=== PATIENT | male | born 1940 | race Caucasian/White ===

== ENCOUNTER 2023-12-07 10:50 | Inpatient (IN) ==
[2023-12-07] MEDS ORDERED: Heparin IV Adult Wt-Based Low-Dose w/ INITIAL Bolus Protocol STA (11:06)
--- NOTE | 2023-12-07 11:10 | Emergency Department Note ---
Impression & Plan STEMI (ST elevation myocardial infarction), Chest pain ED Provider Note NAME: ALLEN GILBERT AGE: 83 SEX: M : 1940 ARRIVES VIA: Walk-In INFORMANT: Patient, ED PROVIDER(S): Miguel Conley MD CHIEF COMPLAINT: Chest pain MEDICAL DECISION MAKING: Patient presented due to concern for chest pain and associated STEMI seen on EKG. The patient was ordered the rest of full course of aspirin and Brilinta load. Heparin bolus and drip were ordered. I did [place] the EKG to the on-call group activities aide Dr. Galdamez. It is per the on-call hospitalist Dr. Webber and the patient was admitted to the medicine service. Blood work shows a white count of 10 with a normal hemoglobin and platelet count. The patient's kidney function with creatinine 1.49. Initial troponin of 42. Critical Care: I have personally spent 35 minutes of critical care time in direct management of this patient. This includes bedside care, interpretation of diagnostic studies, and testing, discussion with consultants, patient, and family members, and other require inpatient management activities. This 35 minutes is in excess of all separately billable procedures. Discussion w/ other healthcare providers: Dr. Webber inpatient medicine service Dr. Galdamez corporate communications specialist Prior /Outside records reviewed: None Differential diagnosis: Cardiac ischemia, aortic dissection, pulmonary embolism, pneumothorax, pneumonia, pericarditis, myocarditis, GERD, cholecystitis, pancreatitis, musculoskeletal, as well as other pathologies were considered. Diagnostics, as interpreted by me: ECG: Sinus with a rate in the 60s, normal OK and QRS, left axis deviation. ST elevations in the anterior lateral leads along with trace elevations in the high lateral leads. No priors for comparison. Cardiac monitoring: An order was placed for continuous cardiac monitoring. The monitor shows a rate of 65 with sinus rhythm. Patient was placed on pulse oximetry Medical decision rules: Heart score Imaging studies: I informally interpreted the patient's Chest x-ray does not show obvious pneumonia or pneumothorax with formal report to follow. HPI: Patient presents due to concern for chest pain that began about an hour ago while driving. The patient states that it is still present. Patient did take 2 baby aspirin at home. The patient denies any prior history of heart or lung disease and no upper respiratory or lower respiratory symptoms. Patient denies any leg swelling or calf pain. Patient does complain of nausea but no vomiting. He describes it as a pressure that is left-sided diffuse across the chest. He did not think it necessarily got any worse when walking into the department today. Patient states that it is currently present. PAST MEDICAL HISTORY: See Below PAST SURGICAL HISTORY: See Below SOCIAL HISTORY: See Below HOME MEDICATIONS: See Below ALLERGIES: See Below VITALS: See Below PHYSICAL EXAMINATION: GENERAL: NAD, non-toxic. EYE EXAM: Normal conjunctiva. PERRL, no anisocoria and EOM's grossly intact w/o pain. OROPHARYNX: Moist mucus membranes, grossly normal dentition. NECK: Trachea midline, no stridor. LUNGS: Clear to auscultation. Normal chest wall mechanics. HEART: NSR, no MRG. ABDOMEN: Abdomen soft, non-tender, no masses, no rebound or guarding. BACK: No CVA TTP. SKIN: No rashes and no bruising. UPPER EXTREMITIES: Upper extremities are grossly normal. LOWER EXTREMITIES: Grossly normal, no edema. NEURO EXAM: A&O x3, cranial nerves II-XII grossly intact, normal speech, moves all 4 extremities. Past Med/Surg History Problem List (Updated 12/07/23 @ 19:14 by Miguel Conley MD) Chest pain (Acute) Pure hypertriglyceridemia Hypertension Chronic kidney disease, stage 3b Chronic tophaceous gout STEMI (ST elevation myocardial infarction) (Acute) Medical History Prostate cancer Previously followed with [facility] Rad/Onc and Urology, completed treatment in June 2020 Social History Smoking Status: Former smoker Second Hand Exposure: No; Do You Dip or Chew Tobacco: No; Tobacco Cessation Education Requested by Patient: No Hx Alcohol Use: No Hx Substance Use: No Preferred Language: Cantonese German Communication Ability: Effective Motor Setter Required: No Beliefs That Will Affect Care: None Current Living Situation: Spouse Other Information That Helps Us Care for You: No Feels Safe at Home: Yes Safety Concerns: Feels Safe At This Time Assistive Devices: None Allergies Allergies Allergy/AdvReac Type Severity Reaction Status Date / Time No Known Allergies Allergy Unverified 12/07/23 13:56 Home Meds Home Medications Medication Instructions Recorded Confirmed allopurinol 300 mg tablet 300 mg PO BID 12/07/23 12/07/23 finasteride 5 mg tablet 5 mg PO DAILY 12/07/23 12/07/23 glucosamine sulfate 500 mg tablet 500 mg PO BID 12/07/23 12/07/23 prednisone 2.5 mg tablet 2.5 mg PO DAILY 12/07/23 12/07/23 Results & Data (ED) Vital Signs Vital Signs - 24 hr 12/07/23 10:54 12/07/23 11:14 Temperature 36.5 C Temperature Source Oral Pulse Rate 56 L 63 Respiratory Rate 14 Blood Pressure 163/99 H Blood Pressure Mean 120 Pulse Oximetry 99 Oxygen Delivery Method Room Air Sepsis New/Unexplained Change in Mental Status No Sepsis Action Taken by Nursing No Action Required Home Medications Current Medication List: was personally reviewed by me Laboratory Data Attestation: I reviewed the patient's lab results. 12/07/23 11:08 12/07/23 11:08 Lab Results 12/07/23 Range/Units 11:08 WBC 10.81 H (4.8-10.8) K/ul RBC 4.47 L (4.70-6.10) M/uL Hgb 14.4 (14.0-18.0) g/dl Hct 45.4 (42.0-52.0) % MCV 101.6 H (80.0-100.0) fL MCH 32.2 (25.0-34.0) pg MCHC 31.7 L (32.0-36.0) g/dL RDW Std Deviation 51.8 H (36.4-46.3) fL RDW Coeff of Rupali 13.8 (11.5-14.5) % Plt Count 193 (130-400) K/uL MPV 11.9 (9.4-12.4) fL Immature Gran % (Auto) 0.6 % Neut % (Auto) 82.4 % Lymph % (Auto) 8.2 % Jay % (Auto) 7.5 % Eos % (Auto) 0.9 % Baso % (Auto) 0.4 % Neut # (Auto) 8.90 H (1.40-6.50) K/uL Lymph # (Auto) 0.89 L (1.20-3.40) K/uL Jay # (Auto) 0.81 H (0.11-0.59) K/uL Eos # (Auto) 0.10 (0.00-0.50) K/uL Baso # (Auto) 0.04 (0.00-0.20) K/uL Immature Gran # (Auto) 0.07 (0.01-0.20) K/uL PT 11.8 (9.0-12.0) Seconds INR 1.1 (0.9-1.1) APTT 24 (21-31) Seconds PTT Ratio 0.9 Sodium 141 (136-145) mmol/L Potassium 3.8 (3.5-5.1) mmol/L Chloride 106 (98-107) mmol/L Carbon Dioxide 27 (21-32) mmol/L Anion Gap 8 (3-11) BUN 22 (6-23) mg/dl Creatinine 1.49 H (0.6-1.4) mg/dl Est Cr Clr Drug Dosing Not Reportable eGFR 46.28 BUN/Creatinine Ratio 14.8 (10-20) Glucose 122 H (70-99(Fasting)) mg/dl Calcium 9.7 (8.6-10.3) mg/dl Magnesium 2.0 (1.7-2.4) mg/dl Total Bilirubin 0.5 (0.2-1.0) mg/dl AST 20 (13-39) U/L ALT 22 (7-52) U/L Alkaline Phosphatase 83 (34-104) U/L Total Creatine Kinase 66 (30-223) U/L Troponin I High Sens 42.2 H (0-20) pg/ml B-Natriuretic Peptide 68 (0-100) pg/ml Total Protein 7.4 (6.0-8.3) gm/dl Albumin 4.6 (3.4-5.0) gm/dl Globulin 2.8 (2.5-4.0) gm/dl Albumin/Globulin Ratio 1.6 (0.9-2) Lipase 23 (11-82) U/L TSH 4.245 (0.300-4.500) uIu/ml Administered Medications Miscellaneous (Icu Protocol For Hyperglycemia) 1 each N/A ACHS PAULINE Stop: 12/09/23 16:29 Last Admin: 12/07/23 18:15 Dose: Not Given Documented By: KJS Nitroglycerin (Nitroglycerin Sl 0.4 Mg/Tab Tab) 0.4 mg SL Q5M PRN PRN Reason: Chest Pain Stop: 01/06/24 11:05 Last Admin: 12/07/23 11:13 Dose: 0.4 mg Documented By: TREVON Discontinued Medications Adenosine (Adenosine Iv Soln 3 Mg/Ml 2 Ml Vial) Confirm Administered Dose 6 mg IV .STK-MED ONE Stop: 12/07/23 12:12 Last Admin: 12/07/23 12:17 Dose: 1 mg Documented By: CHRISTAL Aspirin (Aspirin Chew 324 Mg) 162 mg PO NOW STA Stop: 12/07/23 11:07 Last Admin: 12/07/23 13:51 Dose: Not Given Documented By: NITA Aspirin (Aspirin 81 Mg Chew) Confirm Administered Dose 162 mg .ROUTE .STK-MED ONE Stop: 12/07/23 11:09 Last Admin: 12/07/23 11:11 Dose: 162 mg Documented By: TREVON Fentanyl Citrate (Fentanyl Citrate Pf 100 Mcg/2 Ml Vial) Confirm Administered Dose 100 mcg .ROUTE .ST-MED ONE Stop: 12/07/23 11:10 Last Increment: 12/07/23 12:47 Dose: 75 mcg Documented By: RALEIGH Heparin Sodium (Porcine) (Heparin (Porcine) 1000 Unit/Ml 10 Ml (Window Decorator Use Only)) Confirm Administered Dose 10,000 units .ROUTE .STK-MED ONE Stop: 12/07/23 11:10 Last Admin: 12/07/23 12:36 Dose: 12,000 units Documented By: RALEIGH Heparin Sodium (Porcine) (Heparin Sod (Porcine) 1000 Unit/Ml) Confirm Administered Dose 1,000 units .ROUTE .STK-MED ONE Stop: 12/07/23 11:14 Last Admin: 12/07/23 13:51 Dose: Not Given Documented By: NITA Heparin Sodium (Porcine) (Heparin (Porcine) 1000 Unit/Ml 10 Ml (Window Decorator Use Only)) Confirm Administered Dose 10,000 units .ROUTE .STK-MED ONE Stop: 12/07/23 11:52 Last Admin: 12/07/23 11:57 Dose: Not Given Documented By: RALEIGH Heparin Sodium/Sodium Chloride (Heparin In Nss Infusion 1000 Unit/500 Ml (2 U/Ml) Bag) Confirm Administered Dose 3,000 units IV .STK-MED ONE Stop: 12/07/23 11:11 Last Admin: 12/07/23 11:32 Dose: 3,000 units Documented By: CHRISTAL Iodixanol (Iodixanol (Visipaque) 320 Mg/Ml 100ml) Confirm Administered Dose 1 ml IV .[facility] ONE Stop: 12/07/23 11:11 Last Admin: 12/07/23 12:36 Dose: 160 ml Documented By: CHRISTAL Ioversol (Optiray 350) Confirm Administered Dose 1 ml .ROUTE .[facility] ONE Stop: 12/07/23 11:11 Last Admin: 12/07/23 11:33 Dose: Not Given Documented By: CHRISTAL Lidocaine HCl (Lidocaine 1% Local 20 Ml Vial) Confirm Administered Dose 60 ml .ROUTE .[facility] ONE Stop: 12/07/23 11:12 Last Admin: 12/07/23 11:33 Dose: 60 ml Documented By: CHRISTAL Midazolam HCl (Midazolam Hcl 1 Mg/Ml 2ml Vial) Confirm Administered Dose 2 mg .[address]TE .[facility] ONE Stop: 12/07/23 11:10 Last Admin: 12/07/23 12:37 Dose: 2 mg Documented By: RALEIGH Miscellaneous (Patient's Height &/Or Weight Needed) 1 each N/A ONE STA Stop: 12/07/23 13:32 Last Admin: 12/07/23 13:52 Dose: 1 each Documented By: NITA Mismigdaliaaneous Information (Patient's Allergy Info Needs Entered) 1 each N/A ONE STA Stop: 12/07/23 13:32 Last Admin: 12/07/23 13:52 Dose: 1 each Documented By: NITA Nicardipine HCl (Nicardipine Hcl Inj 2.5 Mg/Ml 10 Ml Amp) Confirm Administered Dose 25 mg .ROUTE .[facility] ONE Stop: 12/07/23 11:10 Last Admin: 12/07/23 11:58 Dose: 25 mg Documented By: CHRISTAL Nitroglycerin/Dextrose (Nitroglycerin/D5w 100mcg/Ml 20ml Syr) Confirm Administered Dose 2,000 mcg .ROUTE .[facility] ONE Stop: 12/07/23 11:11 Last Admin: 12/07/23 11:58 Dose: 2,000 mcg Documented By: CHRISTAL Ondansetron HCl (Ondansetron Inj 2 Mg/Ml 2 Ml Vial) Confirm Administered Dose 4 mg .ROUTE .STK-MED ONE Stop: 12/07/23 11:49 Last Admin: 12/07/23 11:58 Dose: 4 mg Documented By: RALEIGH Ticagrelor (Ticagrelor 90 Mg Tab) 180 mg PO ONE ONE Stop: 12/07/23 11:07 Last Admin: 12/07/23 11:11 Dose: 180 mg Documented By: TREVON Discharge Plan Visit Data Chief Complaint: Chest Pain Stated Complaint: CHEST PAIN/VERY TIRED/COLD SWEAT ED Provider: Miguel Conley Discharge Problem: STEMI (ST elevation myocardial infarction), Chest pain Patient Disposition: Admitted As Inpatient Discharge Instructions Interventions: ED Discharge Assessment Last Done: 12/07/23 11:26 Discharge Problem: STEMI (ST elevation myocardial infarction) Qualifiers: Involved coronary artery: LAD coronary artery Qualified Code(s): I21.02 - ST elevation (STEMI) myocardial infarction involving left anterior descending coronary artery Chest pain Qualifiers: Chest pain type: chest pain due to myocardial ischemia Ischemic chest pain type: unstable angina pectoris Qualified Code(s): I20.0 - Unstable angina
[2023-12-07] MEDS: ASPIRIN 81 MG CHEW ONE (11:11)
[2023-12-07] MEDS: TICAGRELOR 90 MG TAB PO ONE (11:11)
[2023-12-07] MEDS: NITROGLYCERIN SL 0.4 MG/TAB TAB SL PRN (11:13)
--- NOTE | 2023-12-07 11:21 | Pre Anesthesia Assessment ---
Date of Service December 07, 2023 Pre Sedation Assessment Vital Signs Temp Pulse Resp BP Pulse Ox O2 Del Method 12/07/23 11:14 63 12/07/23 10:54 97.7 F 56 L 14 163/99 H 99 Room Air Cardiovascular + regular rate Respiratory + respiratory effort normal Pre-Sedation Airway Assessment Smoking Status: Former smoker Hx Sleep Apnea: No Hx Difficult Intubation: No Short, Thick Neck: No Thyromental Distance: > or= 3.5 Finger Breadths Oral Cavity: + Dental Abnormalities Mallampati Class: III ASA: ASA4 Procedure Planning Contraindications for Sedation: none Current Medications Reviewed: Yes Notes The planned sedation has been discussed with the patient. Informed Consent was obtained. I have identified the patient, determined the appropriateness of sedation and have assessed the patient immediately prior to the procedure. All medicine(s) and interventions are by my order.
--- NOTE | 2023-12-07 11:24 | Cardiology Consultation ---
Date of Consultation December 07, 2023 Assessment & Plan (1) STEMI (ST elevation myocardial infarction): Presentation consistent with anterior STEMI and recommend proceeding with emergent cardiac catheterization and likely primary PCI. No apparent contraindications to procedure. Discussed risks, benefits, alternatives of procedure with patient and they are willing to proceed. Given aspirin and ticagrelor 180 mg in the ED. Further recommendations pending findings of coronary angiography. History of Present Illness History of Present Illness Mr. Pearce is an 83-year-old man here with acute chest pain and ECG concerning for acute OH. Patient seen emergently in the ED after heart alert activated on arrival. No prior cardiac history. Past medical history remarkable for chronic kidney disease thought secondary to heavy NSAID use in the setting of gout. Chest pain began approximately 1 hour prior to arrival while driving home from a muslim meeting. Describes substernal pain with associated nausea.. Denies similar symptoms in the past. Hypertensive to 160s upon arrival. Ongoing mild chest pain, 10. ECG showed sinus rhythm with anterior ST elevations. Family history: No premature CAD Social history: Non-smoker. 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 , here today with his Elsa. Home Medications Medication Instructions Recorded Confirmed Type allopurinol 300 mg tablet 300 mg PO BID 12/07/23 12/07/23 History glucosamine sulfate 500 mg tablet 500 mg PO BID 12/07/23 12/07/23 History prednisone 2.5 mg tablet 2.5 mg PO DAILY 12/07/23 12/07/23 History tamsulosin 0.4 mg capsule (Flomax) 0.4 mg PO DAILY 12/07/23 12/07/23 History Patient History Medical History (Updated 12/07/23 @ 12:35 by Sangeeta Kinsey DO) Prostate cancer Previously followed with [facility] Rad/Onc and Urology, completed treatment in June 2020 Social History Smoking Status: Former smoker Preferred Language: Azeri Feels Safe at Home: Yes Review of Systems Review of Systems: Not completed in the setting of emergent situation Physical Exam Physical Exam: General: Uncomfortable HEENT: Sclerae anicteric Lungs: Clear anteriorly Cardiac: Regular rate and rhythm, no murmurs. Vascular: 2+ radial Abdomen: Soft, nontender Extremities: Well perfused, no peripheral edema Neuro: Nonfocal Psych: Alert orient x3, normal affect and mood Results & Data Vital Signs (Past 12 Hours) Vital Signs Temp Pulse Resp BP Pulse Ox O2 Del Method 12/07/23 11:14 63 12/07/23 10:54 97.7 F 56 L 14 163/99 H 99 Room Air PG Care Time/CCT Total # of Minutes Spent Total Time Spent with Patient: Total time spent is greater than 50% in coordination of care (as documented) at patient's floor/unit and/or counseling patient: Coding Level of Care Code 23977 ER DEPT VISIT MOD LVL 4 Diagnoses STEMI (ST elevation myocardial infarction) I21.3
[2023-12-07] MEDS: OPTIRAY 350 ONE (11:33)
[2023-12-07] MEDS: LIDOCAINE 1% LOCAL 20 ML VIAL ONE (11:33)
[2023-12-07] MEDS: HEPARIN (PORCINE) 1000 UNIT/ML 10 ML (CATH LAB USE ONLY) ONE ×2 (11:57→12:36)
[2023-12-07] MEDS: niCARdipine HCL INJ 2.5 MG/ML 10 ML AMP ONE (11:58)
[2023-12-07] MEDS: ONDANSETRON INJ 2 MG/ML 2 ML VIAL ONE (11:58)
[2023-12-07] MEDS: NITROGLYCERIN/D5W 100MCG/ML 20ML SYR ONE (11:58)
[2023-12-07] MEDS: ADENOSINE IV SOLN 3 MG/ML 2 ML VIAL IV ONE (12:17)
[2023-12-07] MEDS: IODIXANOL (VISIPAQUE) 320 MG/ML 100ML IV ONE (12:36)
[2023-12-07] MEDS: MIDAZOLAM HCL 1 MG/ML 2ML VIAL ONE (12:37)
[2023-12-07] MEDS: fentaNYL citrate PF 100 MCG/2 ML VIAL ONE (12:47)
--- NOTE | 2023-12-07 13:00 | Post Anesthesia Assessment ---
Date of Service December 07, 2023 Post Sedation Assessment Vital Signs Temp Pulse Resp BP Pulse Ox O2 Del Method 12/07/23 11:14 63 12/07/23 10:54 97.7 F 56 L 14 163/99 H 99 Room Air Recovery Score Activity: Moves 4 extremities Respiration: Deep Breath/Cough Circulation: +/-20% PreAnes Value Consciousness: Fully Awake Oxygen Saturation: O2 needed for >90% Discharge Sedation Level of Care: Fast Track Phase II Post Sedation Plan On clinical assessment, the patient appears to have tolerated the sedation without complications. Patient is recovering as anticipated. Patient will continue to be monitored by nursing and may be discharged when sedation discharge criteria are met per below protocol. Upon Completions of procedure up to 15 minutes continue every 5 minute vital signs and the P.A.R. score; then discharge to a Phase I or Fast Track to Phase II per the following guidelines: * Discharge Patient to appropriate Phase II area if PAR is 8 or greater or return to pre- procedure baseline. The post - procedure orders will be as directed. * If PAR score is less than 8 or not return to pre-procedure baseline then patient will follow Phase I monitoring till PAR is reached for Phase II. The Phase I may be done in procedure room or may call to secure a Phase I area. * If naloxone or flumazenil are used for reversal, hold in Phase I for continued monitoring from when last reversal dose was given for a minimum of 60 minutes or longer pending the nurse and/or physician discretion of patient condition before discharge to Phase II. Please call the Sedation Physician to re-evaluate and complete post-note for discharge to Phase II area. Do NOT discharge from procedure sedation or Phase 1 until post- sedation evaluation note is complete by procedure /sedation MD Sedation Discharge Instructions to be given to the patient at discharge to home.
[2023-12-07] MEDS ORDERED: ACETAMINOPHEN 325 MG TAB PO PRN (13:02)
[2023-12-07] MEDS ORDERED: ONDANSETRON INJ 2 MG/ML 2 ML VIAL IV PRN (13:02)
[2023-12-07] MEDS ORDERED: ICU Protocol for HYPERglycemia SCH (13:20)
[2023-12-07 13:27] LABS: Basophils # (auto) 0.04 K/uL (0.00-0.20); Basophils % (auto) 0.4 %; Eosinophils % (auto) 0.9 %; Hematocrit (blood only) 45.4 % (42.0-52.0); Hemoglobin 14.4 g/dl (14.0-18.0); Immature Granulocytes # (auto) 0.07 K/uL (0.01-0.20); Immature Granulocytes % (auto) 0.6 %; Lymphocytes # (auto) 0.89 K/uL (1.20-3.40); Lymphocytes % (auto) 8.2 %; Mean Corpuscular Hemoglobin 32.2 pg (25.0-34.0); Mean Corpuscular Hgb Conc 31.7 g/dL (32.0-36.0); Mean Corpuscular Volume 101.6 fL (80.0-100.0); Mean Platelet Volume 11.9 fL (9.4-12.4); Monocytes # (auto) 0.81 K/uL (0.11-0.59); Monocytes % (auto) 7.5 %; Neutrophils % (auto) 82.4 %; Platelet Count 193 K/uL (130-400); RDW Coefficient of Variation 13.8 % (11.5-14.5); RDW Standard Deviation 51.8 fL (36.4-46.3); Red Blood Count 4.47 M/uL (4.70-6.10); White Blood Count 10.81 K/ul (4.8-10.8)
[2023-12-07 13:28] LABS: INR 1.1 (0.9-1.1); Partial Thromboplastin Ratio 0.9; Partial Thromboplastin Time 24 Seconds (21-31); Prothrombin Time 11.8 Seconds (9.0-12.0)
[2023-12-07 13:30] LABS: Alanine Aminotransferase 22 U/L (7-52); Albumin Globulin Ratio 1.6 (0.9-2); Albumin Level 4.6 gm/dl (3.4-5.0); Alkaline Phosphatase 83 U/L (34-104); Anion Gap 8 (3-11); Aspartate Aminotransferase 20 U/L (13-39); BUN Creatinine Ratio 14.8 (10-20); Bilirubin,Total 0.5 mg/dl (0.2-1.0); Blood Urea Nitrogen 22 mg/dl (6-23); Calcium 9.7 mg/dl (8.6-10.3); Carbon Dioxide 27 mmol/L (21-32); Chloride 106 mmol/L (98-107); Creatine Kinase 66 U/L (30-223); Globulin 2.8 gm/dl (2.5-4.0); Glucose 122 mg/dl (70-99(Fasting)); Lipase 23 U/L (11-82); Potassium 3.8 mmol/L (3.5-5.1); Sodium 141 mmol/L (136-145); Total Protein 7.4 gm/dl (6.0-8.3)
[2023-12-07 13:36] LABS: Troponin I High Sensitivity 42.2 pg/ml (0-20)
--- NOTE | 2023-12-07 13:40 | Cardiac Catheterization ---
[facility] Data: [employer] Feeder Cardiac Status Clinical evaluation leading to the procedure CAD Presenation: STEMI Anginal Classification: CCS IV Diagnostic Physicians Name: Manuel Galdamez MD Closure Device Recommendations: PCI without planned CABG Cardiac Cath Procedure Full Procedure Date December 07, 2023 Pre-Procedure Diagnosis Pre-Procedure Diagnosis: STEMI AUC Score AUC Score: 9 Post-Procedure Diagnosis Post-Procedure Diagnosis: Severe CAD, Successful PCI and Normal Intracardiac Pressures Procedure(s) Performed Procedure(s) Performed: Coronary Angiography, Left Heart Cath, Drug Eluting Stent, Ultrasound Guided Vascular Access and IVUS Head Sulfide Operator Manuel Galdamez MD Online Affiliate Marketing Manager(s) Jaret Estimated Blood Loss Estimated Blood Loss: 10 Medication(s) Medication(s): Adenosine, Fentanyl, Heparin, Lidocaine 1%, Nicardipine, Nitroglycerin and Versed Medication(s): Ticagrelor Summary of Findings Indication: STEMI/Heart Alert Access: 6 Fr slender right radial artery under ultrasound guidance Catheters: EBU 3.5 guide, diagnostic JR4 Findings: LM -normal caliber, no significant disease LAD -large caliber, 50% proximal just before takeoff of D1, 70% stenosis just after D1 and prior to large second septal. 100% mid LAD occlusion after second septal.. D1 60-70% ostial stenosis Circumflex -medium caliber, 20-30% ostial, small OM 2 with 50% ostial, 40-50% mid to distal disease extending into OM3. RCA -dominant, large caliber, 30 to 40% earlymid segment disease, 30% distal disease prior to takeoff of PDA. RPDA and right posterior AV branch without significant disease. LVEDP -19 -- PCI -- Antithrombotic therapy: Heparin, ticagrelor Procedure: Left main cannulated with EBU 3.5 guide BMW wire passed across lesion into distal vessel Mid LAD lesion predilated with 2.5 compliant balloon Slow flow in LAD after initial angioplasty. No change with additional IC vasodilators. IVUS of late mid LAD revealed no significant disease. Significant calcified mid LAD disease extending back across takeoff of D1 into proximal LAD. There is significant ostial LAD or left main disease. Dilated mid LAD stented with 2.5 x 30 mm [place] drug-eluting stent Prowater wire placed into D1 Second DESIREE (3.0 x 18 mm Tim) placed from proximal LAD across takeoff of D1 and overlapping proximal aspect of initial stent Repeat IVUS revealed well apposed stent with no apparent edge complications. No significant disease to distal segment Stents post-dilated with 3.5 noncompliant balloon Additional IC vasodilators administered including adenosine with minimal improvement D1 rewired with fixed wing pilot 50 wire. Ostium of D1 dilated through stent struts with 2.0 balloon Additional IC vasodilators administrated LAD rewired with fixed wing pilot 50 wire. Distal LAD to apex gently dilated with 2.0 balloon to 4 jodie Post procedure TATYANA 2-3 flow in distal vessel, stents well expanded with minimal residual stenosis and no apparent cardiac complications. Residual stenosis in D1 but TATYANA-3 flow. Arterial Closure: TR band Summary: 1. Anterior STEMI/acute 100% mid LAD occlusion 2. Moderate non-culprit coronary artery disease -60-70% ostial D1 40-50% small mid to distal circumflex 30-40% earlymid RCA 3. Borderline elevated intracardiac filling pressure 4. Successful PCI of proximal to mid LAD with 2 overlapping drug-eluting stents (3.0 x 18, 2.5 x 30 mm Tim; postdilated with 3.5 NC). -Angioplasty of ostium of jailed first diagonal with 2.0 balloon Recommendations: Admit to ICU for continued monitoring Loaded with ticagrelor 180 mg in Web Feeder Continue dual-antiplatelet therapy for at least 1 year. Trend troponins until peak, Check Echo Uptitrate beta-blaise/OLAYINKA as BP allows High-dose statin Consult cardiac Rehab Hemodynamics Rest Ao:: 126/71/93 Final Ao: 97/53/72 LV: 98/20 Recommendations Recommendations: PCI without planned CABG Specimens Specimens: None Radiation Exposure (mGy) 3192 Contrast (mls) 160 Anesthesia Moderate [id number] Procedural Complication(s) None Disposition ICU I attest to the content of the Intraoperative Record and any orders documented therein. Any exceptions are noted below. [facility] Card Cath Procedure Codes Cardiac Catheterization Procedure 1: Cardiovascular Cath Procedures: 06826 Coronaries and LHC (+/-LV) Therapeutic Services & Ancillary Procedure 1: Cardiovascular Tx and Anc Procedures: 69081 IV Ultrasound (Coronary or Graft) Procedure 2: Cardiovascular Tx and Anc Procedures: 06759 Ultrasonic Guidance Vascular Access Moderate Sedation Procedure 1: Sedation/Anesthesia: 94010 Mod Sedation by the same physician;Init15 Min Child Age 5 & Up Procedure 2: Sedation/Anesthesia: 00860 Mod Sedation by the same physician; Ea [id number] Minutes Stenting Procedure 1: Cardiovascular Stent Procedures: 02553 Perc transluminal revascularization of acute sub/total occl, aMI PG Care Time/CCT Total # of Minutes Spent Total Time Spent with Patient: Total time spent is greater than 50% in coordination of care (as documented) at patient's floor/unit and/or counseling patient:
[2023-12-07 13:45] LABS: Thyroid Stimulating Hormone 4.245 uIu/ml (0.300-4.500)
[2023-12-07] MEDS: HEPARIN SOD (PORCINE) 1000 UNIT/ML ONE (13:51)
[2023-12-07] MEDS: ASPIRIN CHEW 324 MG PO STA (13:51)
--- NOTE | 2023-12-07 13:51 | History & Physical Report ---
"Date of Service December 07, 2023 Assessment & Plan (1) Pure hypertriglyceridemia: (2) Hypertension: (3) Chronic kidney disease, stage 3b: (4) Chronic tophaceous gout: (5) STEMI (ST elevation myocardial infarction): Plan Acute STEMI | S/P Placement of Drug-Eluting Stents to LAD -Presented with acute onset of chest pain, EKG on prevention with acute ST elevation indicating anterior STEMI -Cardiology consulted, patient underwent cardiac catheterization -acute 100% mid LAD occlusion -Received 2 overlapping drug-eluting stents to mid LAD -Started on Brilinta, high dose statin, beta blaise, OLAYINKA inhibitor. Anticipate DAPT x1 year -At time of evaluation post-cath, patient endorses only mild chest pain (1/10 intensity) -Trend troponin, plan for echocardiogram tomorrow -Further management per ICU Chronic Tophaceous Gout -Continue current Allopurinol, chronic prednisone CKD Stage 3B -Cr 1.49, eGFR 46.28 on admission -Baseline Cr not visible on limited records from PCP, baseline eGFR listed at 42 -Avoids NSAIDs, nephrotoxic medications ?BPH | History of Prostate Cancer -Recently switched from tamsulosin to finasteride per patient -Completed cancer treatment in 2020 Admit to ICU Diet: Heart Healthy Code Status: Full Code Admission and Anticipated Discharge Date Admission Date: December 07, 2023 History of Present Illness Primary Care Provider: NO PCP Carlos Pearce is a 83 year-old male who presents today for sudden onset of chest pain. His past medical history is significant for hypertriglyceridemia, CKD, prostate cancer (treatment ended in 2020), and chronic tophaceous gout. Upon arrival at ED he was triaged and Heart Alert was called. Patient was taken to the [facility] and underwent heart catheterization and stent placement. Patient states that this morning he went to a monthly gathering with his mandaeism group, and afterwards he began to experience some centralized chest pain which did not resolve so he presented to the ED. States he has never experienced symptoms like this before. Notes some SOB with exertion but states he is not sure if this has been getting worse. Denies chest pain with exertion, nausea/vomiting/changes in bowel habits. Patient lives at home with his . 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 Patient's PCP is Kaylen CM at [facility], however she has recently moved to [facility] but patient has no been seen at [facility] yet. Limited records were obtained from prior [facility] office, home medications confirmed with patient and he notes that his urologist recently switched him from tamsulosin to finasteride but he denies any other changes to his medications. Allergies Allergy/AdvReac Type Severity Reaction Status Date / Time No Known Allergies Allergy Unverified 12/07/23 13:56 Home Medications Medication Instructions Recorded Confirmed Type allopurinol 300 mg tablet 300 mg PO BID 12/07/23 12/07/23 History finasteride 5 mg tablet 5 mg PO DAILY 12/07/23 12/07/23 History glucosamine sulfate 500 mg tablet 500 mg PO BID 12/07/23 12/07/23 History prednisone 2.5 mg tablet 2.5 mg PO DAILY 12/07/23 12/07/23 History Past Med/Surg History Problem List (Updated 12/07/23 @ 19:14 by Miguel Conley MD) Chest pain (Acute) Pure hypertriglyceridemia Hypertension Chronic kidney disease, stage 3b Chronic tophaceous gout STEMI (ST elevation myocardial infarction) (Acute) Medical History Prostate cancer Previously followed with [facility] Urology, completed treatment in June 2020 Social History Smoking Status: Former smoker Second Hand Exposure: No; Do You Dip or Chew Tobacco: No; Tobacco Cessation Education Requested by Patient: No Hx Alcohol Use: No Hx Substance Use: No Preferred Language: Cantonese Macedonian Communication Ability: Effective Bi Report Developer Required: No Beliefs That Will Affect Care: None Current Living Situation: Spouse Other Information That Helps Us Care for You: No Feels Safe at Home: Yes Safety Concerns: Feels Safe At This Time Assistive Devices: None Review of Systems Review of Systems: As per above Physical Exam Constitutional: WD/WN, vitals as above Eyes: + anicteric sclerae; no conjunctival abn ormality ENMT: Ears: no external ear abnormality Nose: no external nose abnormality Moist mucous membranes Respiratory: normal respiratory effort, lungs clear to auscultation Cardiovascular: Rate/Rhythm: regular rate and regular rhythm No lower extremity edema Gastrointestinal (Abdomen): normal bowel sounds, soft, nontender, no hepatosplenomegaly Musculoskeletal: Moves all limbs independently Skin: no rashes, warm and dry Psychiatric: A+Ox3, euthymic affect Results & Data Results & Data Vital Signs (Past 12 Hours) Vital Signs Temp Pulse Resp BP Pulse Ox O2 Del Method 12/07/23 11:14 63 12/07/23 10:54 36.5 C 56 L 14 163/99 H 99 Room Air Code Status & VTE Plan VTE Prophylaxis Plan VTE Prophylaxis will be ordered: Yes Supervising Physician Co-Signing Physician Notes I personally saw and examined the patient. I independently reviewed the labs, EKG, imaging, problem list, medication list, past medical history and family history. I verified all bray points and agree with resident physician Dr Sangeeta Kinsey, with the following exceptions and/or additions: 83 year old presents to the ER with chest pain. Heart alert called shortly after arrival to the ER with ST elevations in anterior leads. Patient seen prior to cardiac cath and i the ICU afterwards. Only mild residual chest pain after cardiac cath. O/E HS RRR, no murmurs, Chest CTAB, Abdo SNT, trace pedal edema A/P STEMI - s/p cardiac cath, appreciate cardiology management, ASA, Brillinta, Atorvastatin Resident Activity Tracking Resident Involvement: Resident Care Provided Care Provided: Adult Hospital Medicine"
[2023-12-07] MEDS: Patient's HEIGHT &/or WEIGHT Needed STA (13:52)
[2023-12-07] MEDS: Patient's ALLERGY Info needs ENTERED STA (13:52)
--- NOTE | 2023-12-07 14:15 | Critical Care Consultation ---
Date of Consultation December 07, 2023 Assessment & Plan (1) Chronic kidney disease, stage 3b: (2) Hypertension: (3) STEMI (ST elevation myocardial infarction): Plan --STEMI S/p 2 stents in the LAD on 12/07/2023 Continue with dual antiplatelet therapy Continue with statin Trend troponin and EKG -- CKD Monitor BUNs/creatinine Avoid nephrotoxic medications -- Leukocytosis Likely reactive to STEMI Continue to monitor --History of prostate cancer S/p radiation and Lupron --Prophylaxis VTE: IPC GI: None Lines: Peripheral Diet: Cardiac Plan: Follow-up chest x-ray Continue with dual antiplatelet therapy Trend troponin and EKG Please note the above document was generated using voice recognition software. It may contain grammatical, syntax or spelling errors.Any formal questions or concerns about the content, text or information contained within the body of this dictation should be directly addressed to the provider for clarification. History of Present Illness Attending Physician: Nicholas Webber MD History of Present Illness 83-year-old male presented to the hospital with chest pain Past medical history: BPH, history of prostate cancer s/p radiation and Lupron Patient was taken to cardiac [employer] and stents were placed, was sent to ICU for further care Patient's was in the room at the time of examination At the time of examinations patient's heart rate was in the 60s. Blood pressure was in the 110s. He was saturating 100% on room air He was not in any distress. He stated that the pain is significantly improved. It was 1/10, nonradiating. Denied any nausea vomiting since coming to the hospital No dysuria or diarrhea No headache, no blurry vision No dizziness. Social history: Lifetime non-smoker, works at [employer] No history of cardiac problems in the family No history of lung cancer in the family Allergies Allergy/AdvReac Type Severity Reaction Status Date / Time No Known Allergies Allergy Unverified 12/07/23 13:56 Home Medications Medication Instructions Recorded Confirmed Type allopurinol 300 mg tablet 300 mg PO BID 12/07/23 12/07/23 History finasteride 5 mg tablet 5 mg PO DAILY 12/07/23 12/07/23 History glucosamine sulfate 500 mg tablet 500 mg PO BID 12/07/23 12/07/23 History prednisone 2.5 mg tablet 2.5 mg PO DAILY 12/07/23 12/07/23 History Patient History Medical History (Updated 12/07/23 @ 12:35 by Sangeeta Kinsey, ) Prostate cancer Previously followed with [facility], completed treatment in June 2020 Social History Smoking Status: Former smoker Second Hand Exposure: No; Do You Dip or Chew Tobacco: No; Tobacco Cessation Education Requested by Patient: No Hx Alcohol Use: No Hx Substance Use: No Preferred Language: Cantonese Panamanian Communication Ability: Effective Cane Piler Required: No Beliefs That Will Affect Care: None Current Living Situation: Spouse Other Information That Helps Us Care for You: No Feels Safe at Home: Yes Safety Concerns: Feels Safe At This Time Assistive Devices: None Review of Systems 2 Review of Systems: All systems reviewed & are unremarkable except as noted in HPI & below Physical Exam 2 Physical Exam: Constitutional: No acute distress HEENT: EOMI, PERRLA Respiratory system: Good air entry bilaterally, no wheeze, no rhonchi, minimal crackles bilateral lower lobes CVS: S1-S2 positive, no murmurs or gallops Abdomen: Soft, nontender, nondistended, positive bowel sounds x4 Extremities: +2 pulses bilaterally radialis/ dorsalis pedis, no cyanosis, no edema Neuro: Awake alert oriented x3 Psych: Normal mood and affect G/U: No Diaz Skin: no rashes, warm and dry Lymphatic: no cervical or axillary lymphadenopathy Results & Data Results & Data Vital Signs (Past 12 Hours) Vital Signs Temp Pulse Pulse Resp BP BP Pulse Ox 12/07/23 13:40 36.8 C 69 19 105/70 100 12/07/23 13:33 64 15 100 12/07/23 13:18 55 L 15 100 12/07/23 13:14 105/70 12/07/23 13:14 105/70 12/07/23 13:09 58 L 25 H 12/07/23 11:14 63 12/07/23 10:54 36.5 C 56 L 14 163/99 H 99 O2 Del Method 12/07/23 13:40 Room Air 12/07/23 13:33 12/07/23 13:18 12/07/23 13:14 12/07/23 13:14 12/07/23 13:09 12/07/23 11:14 10/07/24 10:54 Room Air Laboratory Results 12/07/23 11:08 12/07/23 11:08 Coding Level of Care Code 63503 IN/OBS CONSULT LVL 4,60M Diagnoses Chronic kidney disease, stage 3b N18.32 Hypertension I10 STEMI (ST elevation myocardial infarction) I21.3
--- NOTE | 2023-12-07 14:39 | XRay Report ---
XR chest 1V portable HISTORY: 83 years-old Male f/u acute chest pain COMPARISON: None TECHNIQUE: AP view of the chest FINDINGS: Cardiomediastinal and hilar silhouettes are within normal limits. No pneumothorax, pleural effusion, airspace consolidation or pulmonary edema. Bones of the chest appear grossly intact. Partially imaged chondroid lesion of the proximal right humerus. IMPRESSION: No acute process. ACT 112: Negative or not required by law. The above report was generated using voice recognition software. It may contain grammatical, syntax o r spelling errors. Electronically signed by: David Fields M.D. 12/07/2023 2:37 PM
--- NOTE | 2023-12-07 16:16 | Electrocardiogram Report ---
Test Reason : Blood Pressure : */* mmHG Vent. Rate : 55 BPM Atrial Rate : 56 BPM P-R Int : 182 ms QRS Dur : 80 ms QT Int : 430 ms P-R-T Axes : 11 -15 31 degrees QTcB Int : 412 ms Sinus bradycardia Low voltage QRS Anterior infarct Acute ACUTE ND / STEMI Abnormal ECG No previous ECGs available Confirmed by Ulises Collazo ([id number]) on 12/07/2023 4:15:25 PM Referred By: Confirmed By: Ulises Collazo
--- NOTE | 2023-12-07 16:29 | Electrocardiogram Report ---
Test Reason : Blood Pressure : */* mmHG Vent. Rate : 57 BPM Atrial Rate : 57 BPM P-R Int : 190 ms QRS Dur : 78 ms QT Int : 458 ms P-R-T Axes : 51 -18 22 degrees QTcB Int : 445 ms Sinus bradycardia Low voltage QRS Cannot rule out Anterior infarct (cited on or before 07-Dec-2023) Abnormal ECG When compared with ECG of 07-Dec-2023 11:02, (unconfirmed) Vent. rate has decreased by 37 bpm Serial changes of evolving Anterior infarct Present Confirmed by Ulises Collazo ([id number]) on 12/07/2023 4:28:43 PM Referred By: Manuel Galdamez Confirmed By: Ulises Collazo
[2023-12-07] MEDS: ICU Protocol for HYPERglycemia SCH (18:15)
[2023-12-07] MEDS: allopurinoL 300 MG TAB PO SCH (20:07)
[2023-12-07] MEDS: METOPROLOL TARTRATE 25 MG TAB PO SCH (20:07)
[2023-12-08 04:45] LABS: Basophils # (auto) 0.05 K/uL (0.00-0.20); Basophils % (auto) 0.5 %; Eosinophils % (auto) 1.9 %; Hematocrit (blood only) 36.7 % (42.0-52.0); Hemoglobin 12.5 g/dl (14.0-18.0); Immature Granulocytes # (auto) 0.05 K/uL (0.01-0.20); Immature Granulocytes % (auto) 0.5 %; Lymphocytes # (auto) 0.99 K/uL (1.20-3.40); Lymphocytes % (auto) 9.4 %; Mean Corpuscular Hemoglobin 33.8 pg (25.0-34.0); Mean Corpuscular Hgb Conc 34.1 g/dL (32.0-36.0); Mean Corpuscular Volume 99.2 fL (80.0-100.0); Mean Platelet Volume 11.4 fL (9.4-12.4); Monocytes # (auto) 0.89 K/uL (0.11-0.59); Monocytes % (auto) 8.4 %; Neutrophils # (auto) 8.37 K/uL (1.40-6.50); Neutrophils % (auto) 79.3 %; Platelet Count 165 K/uL (130-400); RDW Coefficient of Variation 13.7 % (11.5-14.5); RDW Standard Deviation 50.3 fL (36.4-46.3); White Blood Count 10.55 K/ul (4.8-10.8)
[2023-12-08 05:03] LABS: BUN Creatinine Ratio 15.8 (10-20); Calcium 8.5 mg/dl (8.6-10.3); Creatinine Clr Calc Pharmacy 37.7 ml/min; Potassium 4.2 mmol/L (3.5-5.1)
--- NOTE | 2023-12-08 08:12 | Critical Care Progress Note ---
Date of Service December 08, 2023 Assessment & Plan (1) Chronic kidney disease, stage 3b: (2) Hypertension: (3) STEMI (ST elevation myocardial infarction): Plan --STEMI S/p 2 stents in the LAD on 12/07/2023 Continue with dual antiplatelet therapy Continue with statin Trend troponin and EKG -- CKD Monitor BUNs/creatinine Avoid nephrotoxic medications -- Leukocytosis Likely reactive to STEMI Continue to monitor --History of prostate cancer S/p radiation and Lupron --History of gout On allopurinol as well as 2.5 mg of prednisone on a daily basis --Prophylaxis VTE: IPC GI: Pantoprazole Lines: Peripheral Diet: Cardiac Plan: In/out: -1350, urine output 1350 Continue dual antiplatelet therapy and statin Troponins are trending down Patient hemodynamically stable to be downgraded Please note the above document was generated using voice recognition software. It may contain grammatical, syntax or spelling errors.Any formal questions or concerns about the content, text or information contained within the body of this dictation should be directly addressed to the provider for clarification. Admission and Anticipated Discharge Date Admission Date: December 07, 2023 Subjective Patient seen and examined at bedside. No acute distress, no AutoSense overnight Denied any headache, no nausea, no vomiting Fair appetite Passing gas. Denies any chest pain, no shortness of breath Had a good night sleep Review of Systems 2 Review of Systems: All systems reviewed & are unremarkable except as noted in Subjective Physical Exam 2 Physical Exam: Constitutional: No acute distress HEENT: EOMI, PERRLA Respiratory system: Good air entry bilaterally, no wheeze, no rhonchi, minimal crackles bilateral lower lobes CVS: S1-S2 positive, no murmurs or gallops Abdomen: Soft, nontender, nondistended, positive bowel sounds x4 Extremities: +2 pulses bilaterally radialis/ dorsalis pedis, no cyanosis, no edema Neuro: Awake alert oriented x3 Psych: Normal mood and affect G/U: No Diaz Skin: no rashes, warm and dry Lymphatic: no cervical or axillary lymphadenopathy Results & Data Results & Data Vital Signs (Past 12 Hours) Vital Signs Temp Pulse Resp BP Pulse Ox 12/08/23 06:24 61 11 L 96 12/08/23 06:18 60 15 95 12/08/23 06:03 62 19 95 12/08/23 06:00 126/83 12/08/23 06:00 126/83 12/08/23 05:45 62 20 96 12/08/23 05:39 75 21 95 12/08/23 05:12 56 L 11 L 96 12/08/23 05:06 64 14 96 12/08/23 05:00 120/73 12/08/23 05:00 120/73 12/08/23 04:54 57 L 19 94 12/08/23 04:51 56 L 14 95 12/08/23 04:42 66 15 96 12/08/23 04:30 59 L 14 97 12/08/23 04:27 68 18 96 12/08/23 04:12 55 L 13 96 12/08/23 04:06 56 L 16 97 12/08/23 04:00 118/73 12/08/23 04:00 118/73 12/08/23 03:45 58 L 16 95 12/08/23 03:30 58 L 19 96 12/08/23 03:27 60 20 94 12/08/23 03:12 65 26 H 95 12/08/23 03:00 112/70 12/08/23 03:00 60 18 94 12/08/23 02:51 59 L 19 94 12/08/23 02:42 56 L 13 95 12/08/23 02:30 59 L 17 95 12/08/23 02:15 58 L 18 97 12/08/23 02:09 58 L 14 96 12/08/23 02:00 97/59 L 12/08/23 02:00 97/59 L 12/08/23 01:54 57 L 14 95 12/08/23 01:42 58 L 17 95 12/08/23 01:33 56 L 17 95 12/08/23 01:21 65 18 93 12/08/23 01:00 99/67 L 12/08/23 01:00 99/67 L 12/08/23 01:00 99/67 L 12/08/23 01:00 99/67 L 12/08/23 01:00 60 21 93 12/08/23 00:57 60 21 94 12/08/23 00:48 62 14 95 12/08/23 00:30 63 14 93 12/08/23 00:00 102/54 L 12/08/23 00:00 58 L 13 95 12/07/23 23:42 56 L 19 95 12/07/23 23:30 57 L 18 94 12/07/23 23:27 60 21 95 12/07/23 23:12 59 L 22 95 12/07/23 23:03 36.9 C 12/07/23 23:00 110/71 12/07/23 23:00 110/71 12/07/23 22:45 67 12 97 12/07/23 22:42 63 18 97 12/07/23 22:30 128/73 12/07/23 22:30 56 L 15 96 12/07/23 22:24 54 L 10 L 97 12/07/23 22:12 54 L 18 95 12/07/23 22:06 57 L 19 94 12/07/23 22:00 122/75 12/07/23 21:54 58 L 23 96 12/07/23 21:45 56 L 13 96 12/07/23 21:30 117/70 12/07/23 21:30 117/70 12/07/23 21:30 117/70 12/07/23 21:27 56 L 13 95 12/07/23 21:03 57 L 15 96 12/07/23 21:00 122/72 12/07/23 21:00 122/72 12/07/23 20:39 64 20 99 12/07/23 20:15 36.8 C 12/07/23 20:12 66 22 98 Laboratory Results 12/08/23 04:29 12/08/23 04:29 Coding Level of Care Code 54821 SUB INP/OBS CARE 35MIN Diagnoses Chronic kidney disease, stage 3b N18.32 Hypertension I10 STEMI (ST elevation myocardial infarction) I21.02 Involved coronary artery: LAD coronary artery (3) STEMI (ST elevation myocardial infarction) Involved coronary artery: LAD coronary artery Qualified Code(s): I21.02 - ST elevation (STEMI) myocardial infarction involving left anterior descending coronary artery
[2023-12-08] MEDS: ASPIRIN 81 MG ECTAB PO SCH (09:15)
[2023-12-08] MEDS: FINASTERIDE 5 MG TAB PO SCH (09:16)
[2023-12-08] MEDS: lisinopril 5 MG TAB PO SCH (09:16)
[2023-12-08] MEDS: ATORVASTATIN 40 MG TAB PO SCH (09:16)
[2023-12-08] MEDS: PANTOprazole 40 MG TAB PO SCH (09:17)
[2023-12-08] MEDS: predniSONE 2.5 MG TAB PO SCH (09:17)
[2023-12-08] MEDS: TICAGRELOR 90 MG TAB PO SCH (09:18)
--- NOTE | 2023-12-08 09:42 | Hospitalist Progress Note ---
Date of Service December 08, 2023 Assessment & Plan (1) STEMI (ST elevation myocardial infarction): Plan: S/p 2 stents in the LAD on 12/07/2023 Continue with dual antiplatelet therapy aspirin and brilinta metoprolol and lisinopril Continue with statin Trend troponin and EKG (2) Chronic kidney disease, stage 3b: Plan: stable Plan -- Tophaceous Gout, on allopurinol and low dose prednisone daily --History of prostate cancer S/p radiation and Lupron --Prophylaxis VTE: IPC GI: Pantoprazole Admission and Anticipated Discharge Date Admission Date: December 07, 2023 Subjective pt is doing well from a cardiology standpoint, will likely target dc in am, if good night cath site is clean and dry Physical Exam Physical Exam: Pt is awake and alert, no complaints cardiac is regular lungs are clear cath site distally is with good cap refill and sensation Results & Data Results & Data Vital Signs (Past 12 Hours) Vital Signs Temp Pulse Resp BP Pulse Ox O2 Del Method 12/08/23 09:03 71 17 99 Room Air 12/08/23 08:45 72 19 12/08/23 08:39 74 23 12/08/23 08:00 72 22 12/08/23 08:00 132/82 12/08/23 08:00 132/82 12/08/23 08:00 132/82 12/08/23 07:57 72 22 12/08/23 07:42 72 18 12/08/23 07:30 80 19 97 Room Air 12/08/23 07:28 120/87 12/08/23 07:28 120/87 12/08/23 07:24 69 17 98 Room Air 12/08/23 07:18 60 98 Room Air 12/08/23 07:06 60 21 96 12/08/23 06:51 65 23 96 12/08/23 06:48 67 16 97 12/08/23 06:39 57 L 96 12/08/23 06:24 61 11 L 96 12/08/23 06:18 60 15 95 12/08/23 06:03 62 19 95 12/08/23 06:00 126/83 12/08/23 06:00 126/83 12/08/23 05:45 62 20 96 12/08/23 05:39 75 21 95 12/08/23 05:12 56 L 11 L 96 12/08/23 05:06 64 14 96 12/08/23 05:00 120/73 12/08/23 05:00 120/73 12/08/23 04:54 57 L 19 94 12/08/23 04:51 56 L 14 95 12/08/23 04:42 66 15 96 12/08/23 04:30 59 L 14 97 12/08/23 04:27 68 18 96 12/08/23 04:12 55 L 13 96 12/08/23 04:06 56 L 16 97 12/08/23 04:00 118/73 12/08/23 04:00 118/73 12/08/23 03:45 58 L 16 95 12/08/23 03:30 58 L 19 96 12/08/23 03:27 60 20 94 12/08/23 03:12 65 26 H 95 12/08/23 03:00 112/70 12/08/23 03:00 60 18 94 12/08/23 02:51 59 L 19 94 12/08/23 02:42 56 L 13 95 12/08/23 02:30 59 L 17 95 12/08/23 02:15 58 L 18 97 12/08/23 02:09 58 L 14 96 12/08/23 02:00 97/59 L 12/08/23 02:00 97/59 L 12/08/23 01:54 57 L 14 95 12/08/23 01:42 58 L 17 95 12/08/23 01:33 56 L 17 95 12/08/23 01:21 65 18 93 12/08/23 01:00 99/67 L 12/08/23 01:00 99/67 L 12/08/23 01:00 99/67 L 12/08/23 01:00 99/67 L 12/08/23 01:00 60 21 93 12/08/23 00:57 60 21 94 12/08/23 00:48 62 14 95 12/08/23 00:30 63 14 93 12/08/23 00:00 102/54 L 12/08/23 00:00 58 L 13 95 12/07/23 23:42 56 L 19 95 12/07/23 23:30 57 L 18 94 12/07/23 23:27 60 21 95 12/07/23 23:12 59 L 22 95 12/07/23 23:03 98.4 F 12/07/23 23:00 110/71 12/07/23 23:00 110/71 12/07/23 22:45 67 12 97 12/07/23 22:42 63 18 97 12/07/23 22:30 128/73 12/07/23 22:30 56 L 15 96 12/07/23 22:24 54 L 10 L 97 12/07/23 22:12 54 L 18 95 12/07/23 22:06 57 L 19 94 12/07/23 22:00 122/75 12/07/23 21:54 58 L 23 96 12/07/23 21:45 56 L 13 96 Laboratory Results review cbc review chemistry PG Care Time/CCT Total # of Minutes Spent Total Time Spent with Patient: Total time spent is greater than 50% in coordination of care (as documented) at patient's floor/unit and/or counseling patient: Coding Level of Care Code 72127 SUB INP/OBS CARE 2/35MIN Diagnoses STEMI (ST elevation myocardial infarction) I21.02 Involved coronary artery: LAD coronary artery Chronic kidney disease, stage 3b N18.32 (1) STEMI (ST elevation myocardial infarction) Involved coronary artery: LAD coronary artery Qualified Code(s): I21.02 - ST elevation (STEMI) myocardial infarction involving left anterior descending coronary artery
--- NOTE | 2023-12-08 11:15 | XCELERA ---
[id number]
--- NOTE | 2023-12-08 14:01 | Cardiology Progress Note ---
Date of Service December 08, 2023 Assessment & Plan (1) CAD (coronary artery disease): Plan: Post PCI with 2 DESIREE to mid LAD 12/07/2023 Moderate nonculprit CAD 2. Preserved LV function with apical wall motion abnormalityecho 12/2023 3. Stage III CKD 4. Anemia 5. Mild mitral regurgitation. Doing well from a cardiac standpoint. No recurrent chest pain. Troponins peaked. Hemodynamically and electrically stable today. Preserved LV function on echo Ecchymosis/swelling at right radial artery but no significant access site complications. Continue DAPT with aspirin, ticagrelor. Likely transition to clopidogrel after 1 month Continue current metoprolol. Transition to Toprol-XL at discharge Continue current lisinopril Continue current statin, check lipids in the morning -Continue PPI From a cardiac standpoint okay with transition to telemetry today. Likely discharge tomorrow morning. Admission and Anticipated Discharge Date Admission Date: December 07, 2023 Subjective Feeling well. No chest pain. No new concerns. Telemetry reviewedbrief NSVT yesterday evening. No additional ventricular ectopy today. Review of Systems Review of Systems: All systems reviewed & are unremarkable except as noted in HPI & below Physical Exam Physical Exam: General: Comfortable HEENT: Sclerae anicteric Lungs: Clear anteriorly Cardiac: Regular rate and rhythm, no murmurs. Vascular: 2+ radial pulse, ecchymosis and swelling but no appreciable hematoma. Intact distal sensation/capillary refill Abdomen: Soft, nontender Extremities: Well perfused, no peripheral edema Neuro: Nonfocal Psych: Alert orient x3, normal affect and mood Results & Data Vital Signs (Past 12 Hours) Vital Signs Pulse Resp BP Pulse Ox O2 Del Method 12/08/23 11:06 74 15 98 Room Air 12/08/23 11:00 110/70 12/08/23 10:54 65 10 L 96 12/08/23 10:09 68 28 H 96 12/08/23 10:00 107/70 12/08/23 10:00 107/70 12/08/23 09:51 70 19 94 12/08/23 09:28 121/73 12/08/23 09:28 121/73 12/08/23 09:21 72 25 H 96 12/08/23 09:03 71 17 99 Room Air 12/08/23 08:45 72 19 12/08/23 08:39 74 23 12/08/23 08:00 70 12/08/23 08:00 72 22 12/08/23 08:00 132/82 12/08/23 08:00 132/82 12/08/23 08:00 132/82 12/08/23 07:57 72 22 12/08/23 07:42 72 18 12/08/23 07:30 80 19 97 Room Air 12/08/23 07:28 120/87 12/08/23 07:28 120/87 12/08/23 07:24 69 17 98 Room Air 12/08/23 07:18 60 98 Room Air 12/08/23 07:06 60 21 96 12/08/23 06:51 65 23 96 12/08/23 06:48 67 16 97 12/08/23 06:39 57 L 96 12/08/23 06:24 61 11 L 96 12/08/23 06:18 60 15 95 12/08/23 06:03 62 19 95 12/08/23 06:00 126/83 12/08/23 06:00 126/83 12/08/23 05:45 62 20 96 12/08/23 05:39 75 21 95 12/08/23 05:12 56 L 11 L 96 12/08/23 05:06 64 14 96 12/08/23 05:00 120/73 12/08/23 05:00 120/73 12/08/23 04:54 57 L 19 94 12/08/23 04:51 56 L 14 95 12/08/23 04:42 66 15 96 12/08/23 04:30 59 L 14 97 12/08/23 04:27 68 18 96 12/08/23 04:12 55 L 13 96 12/08/23 04:06 56 L 16 97 12/08/23 04:00 118/73 12/08/23 04:00 118/73 12/08/23 03:45 58 L 16 95 12/08/23 03:30 58 L 19 96 12/08/23 03:27 60 20 94 12/08/23 03:12 65 26 H 95 12/08/23 03:00 112/70 12/08/23 03:00 60 18 94 12/08/23 02:51 59 L 19 94 12/08/23 02:42 56 L 13 95 12/08/23 02:30 59 L 17 95 12/08/23 02:15 58 L 18 97 12/08/23 02:09 58 L 14 96 12/08/23 02:00 97/59 L 12/08/23 02:00 97/59 L 12/08/23 01:54 57 L 14 95 PG Care Time/CCT Total # of Minutes Spent Total Time Spent with Patient: Total time spent is greater than 50% in coordination of care (as documented) at patient's floor/unit and/or counseling patient: Coding Level of Care Code 89021 SUB INP/OBS CARE 3/50MIN Diagnoses CAD (coronary artery disease) I25.10
[2023-12-09 02:53] VITALS: TEMP 97.3
[2023-12-09 07:01] LABS: Basophils # (auto) 0.05 K/uL (0.00-0.20); Basophils % (auto) 0.5 %; Eosinophils # (auto) 0.32 K/uL (0.00-0.50); Eosinophils % (auto) 3.4 %; Hematocrit (blood only) 39.1 % (42.0-52.0); Hemoglobin 12.7 g/dl (14.0-18.0); Immature Granulocytes # (auto) 0.06 K/uL (0.01-0.20); Immature Granulocytes % (auto) 0.6 %; Lymphocytes # (auto) 0.99 K/uL (1.20-3.40); Lymphocytes % (auto) 10.4 %; Mean Corpuscular Hemoglobin 32.6 pg (25.0-34.0); Mean Corpuscular Hgb Conc 32.5 g/dL (32.0-36.0); Mean Corpuscular Volume 100.5 fL (80.0-100.0); Mean Platelet Volume 11.6 fL (9.4-12.4); Monocytes # (auto) 0.89 K/uL (0.11-0.59); Monocytes % (auto) 9.3 %; Neutrophils # (auto) 7.22 K/uL (1.40-6.50); Neutrophils % (auto) 75.8 %; Platelet Count 155 K/uL (130-400); RDW Coefficient of Variation 13.9 % (11.5-14.5); RDW Standard Deviation 51.1 fL (36.4-46.3); Red Blood Count 3.89 M/uL (4.70-6.10); White Blood Count 9.53 K/ul (4.8-10.8)
[2023-12-09 07:09] LABS: Estimated Average Glucose 120 mg/dl; Hemoglobin A1C 5.8 % (4.5-5.6)
[2023-12-09 07:28] VITALS: RESP 17; O2SAT 97
[2023-12-09 07:30] LABS: BUN Creatinine Ratio 19.3 (10-20); Calcium 8.9 mg/dl (8.6-10.3); Chol HDL Ratio 5.3 (0-5); Potassium 4.1 mmol/L (3.5-5.1)
--- NOTE | 2023-12-09 09:38 | Discharge Summary ---
Discharge Summary Date of Service December 09, 2023 Principal Dx & Hospital Course #1 = Principal Diagnosis (1) STEMI (ST elevation myocardial infarction): S/p 2 stents in the LAD on 12/07/2023 Continue with dual antiplatelet therapy aspirin and brilinta, if cost prohibitive after one month Dr Galdamez will consider plavix conversion metoprolol succinate and lisinopril Continue with statin (2) Chronic kidney disease, stage 3b: stable Plan -- Tophaceous Gout, on allopurinol and low dose prednisone daily --History of prostate cancer S/p radiation and Lupron --Prophylaxis VTE: IPC GI: Pantoprazole Notes For Next Care Provider surveillance of bp was slightly lower on metoprolol and lisinopril Admission HPI Per Admitting Provider Carlos Pearce is a 83 year-old male who presents today for sudden onset of chest pain. His past medical history is significant for hypertriglyceridemia, CKD, prostate cancer (treatment ended in 2020), and chronic tophaceous gout. Upon arrival at ED he was triaged and Heart Alert was called. Patient was taken to the labor law professor and underwent heart catheterization and stent placement. Patient states that this morning he went to a monthly gathering with his faith group, and afterwards he began to experience some centralized chest pain which did not resolve so he presented to the ED. States he has never experienced symptoms like this before. Notes some SOB with exertion but states he is not sure if this has been getting worse. Denies chest pain with exertion, nausea/vomiting/changes in bowel habits. Patient lives at home with his . 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 Patient's PCP is Kaylen CM at [facility], however she has recently moved to [facility] but patient has no been seen at [facility] system yet. Limited records were obtained from prior [facility] office, home medications confirmed with patient and he notes that his urologist recently switched him from tamsulosin to finasteride but he denies any other changes to his medications. Discharge Exam awake and alert cardiac exam is regular cath site c/d/i good distal pulses and sensation Discharge Plan Discharge Items Patient Disposition: Home - Self-Care Reason For Visit: STEMI Discharge Diagnosis: Heart attack, now with 2 stents in left anterior descending coronary artery Activity: Per Instructions section Activity Comment: no intentional exercise until cleared by cardiology Non-emergency contact: Primary Care Provider and Mining Support Worker Call non-emergency contact if: your symptoms worsen Follow-up/Referrals: PCP,NO [Primary Care Provider] - Diet: Heart Healthy Addtl Attending Provider Instructions: Home Care: * Take your medications exactly as directed. Don't skip doses. * Remember that recovery after a heart attack takes time. Plan to rest for at lease 4-8 weeks while you recover. Then return to normal activity when your doctor says it's okay. * Ask your doctor about joining a heart rehabilitation program. * Tell your doctor if you are feeling depressed. Feelings of sadness are common after a heart attack, but it is important that you speak to someone if you are feeling overwhelmed by these feelings. * If you are having chest pain, call 911 for an ambulance. Do NOT drive yourself to the hospital. * Ask your family members to learn CPR. * Learn to take your own blood pressure and pulse. Keep a record of your results. Ask your doctor when you should seek emergency medical attention. He or she will tell you which blood pressure reading is dangerous. Lifestyle Changes: * Maintain a healthy weight. Get help to lose any extra pounds. * Cut back on salt. * Limit canned, dried, packaged, and fast foods. * Don't add salt to your food. * Season foods with herbs instead of salt when you cook. * Break the smoking habit. Enroll in a stop-smoking program to improve your chances of success. * Limit fatty foods. * Ask your doctor about having your lipid levels checked regularly. * Build up your activity according to your doctor's recommendation. * Ask your doctor when it's okay to resume sexual activity. * Tell your doctor about any erectile dysfunction (ED) medication you are taking. Some ED medications are not safe if you take certain heart medications. * Try to manage stress. Follow Up: It is important for you to keep your follow up appointments with your medical provider. Addtl Enrichment Teacher Provider Instructions: ACTIVITY RECOMMENDATIONS: Excess manipulation of the wrist should be avoided for the next 24-48 hours. * No lifting over 2 pounds (approximately a 1/2 gallon of milk) with the utilized arm for 24 hours. * No strenuous activity such as bowling or tennis for 3 days. * Keep the site of the procedure covered with a bandage for 24 hours. *You may shower the day after the procedure. Do not take a tub bath or submerge the puncture site in water for the next 3 days. *Do not operate any motorized equipment for 3 days. SPECIAL CARE INSTRUCTIONS: The site may be slightly bruised and sore following your procedure. Should any of the following occur, contact the Dr. who performed your procedure. 1. Redness/inflammation, swelling, chills, or fever, or colored drainage at procedure site within 3-7 days after your procedure. 2. Coldness, discoloration, ongoing numbness, severe pain, or swelling. Expect mild tingling of hand and tenderness at the puncture site for up to three days. If this persists beyond three days, or other symptoms develop, notify the Dr. who performed your procedure. BLEEDING: If the procedure site on your wrist begins to bleed, do not panic 1. Place 1 or 2 fingers firmly just slightly above the insertion site to stop the bleeding. You may be able to feel your pulse as you hold pressure. 2. Lift your finger after 5 minutes to see if the bleeding has stopped. 3. Once the bleeding has stopped, gently wipe the wrist area clean with a bandage. * If the bleeding from your wrist does not stop after 10 minutes, or if there is a large amount of bleeding or spurting, call 911 (do not drive yourself to the hospital). SKIN IRRITATION: * You may experience some redness and/or swelling in the area where radiation was administered. If any skin irritation occurs, please contact your family physician. FOLLOW UP VISIT: Keep any scheduled doctor appointments. Pending Studies at Discharge: No Stand-Alone Forms: [facility], Smoking Cessation Medications and DC Order Prescriptions: New Brilinta 90 mg Tablet 90 mg PO BID Qty: 60 5RF atorvastatin 40 mg Tablet 80 mg PO QAM Qty: 60 5RF nitroglycerin [Nitrostat] 0.4 mg Tablet, Sublingual 0.4 mg sublingual Q5M PRN (Reason: chest pain) Qty: 20 0RF aspirin 81 mg Tablet,Delayed Release (Dr/Ec) 81 mg PO QAM Qty: 90 0RF metoprolol succinate 25 mg tablet extended release 24 hr 25 mg PO DAILY Qty: 30 5RF lisinopril 2.5 mg tablet 2.5 mg PO DAILY Qty: 30 5RF Continued glucosamine sulfate 500 mg Tablet 500 mg PO BID Rx Instructions: administer with meals prednisone 2.5 mg Tablet 2.5 mg PO DAILY allopurinol 300 mg Tablet 300 mg PO BID finasteride 5 mg Tablet 5 mg PO DAILY Discharge Orders: Discharge Order (Routine); Ordered 12/09/23 Ordered By: Alejandro Moreno/Other Patient Handouts: A1C Admission Data Admit Date/Time: 12/07/23 11:21 Attending Provider: Alejandro Sumner Admit Provider: Nicholas Webber Primary Care Provider: PCP,NO Other Providers: Sindy Gacria; Nicholas Webber; Manuel Galdamez Hospital Stay Data Consultations 12/07/23 11:10 ED Decision to Admit Stat 12/07/23 11:19 Consult Cardiology Stat 12/07/23 13:15 Consult Education Site Manager Routine 12/07/23 13:20 Consult Education Site Manager Routine Procedures Performed Operation Date: 12/07/23 11:15 Actual Procedures p Cineradiography w/Routine Exam - Manuel Galdamez MD s Cath, Left with Cors and Vent - Manuel Galdamez MD s IVUS Coronary Single Vessel - Manuel Galdamez MD s Drug Eluting Stent SGl Vessel - Manuel Galdamez MD Diagnostic Imagining Performed 12/07/23 11:07 CL Cath Imgs for PACS use only Stat Pending Results Patient Have Any Pending Studies at Discharge: No Discharge Instructions Given to Patient (Per Discharging Provider) Home Care: * Take your medications exactly as directed. Don't skip doses. * Remember that recovery after a heart attack takes time. Plan to rest for at lease 4-8 weeks while you recover. Then return to normal activity when your doctor says it's okay. * Ask your doctor about joining a heart rehabilitation program. * Tell your doctor if you are feeling depressed. Feelings of sadness are common after a heart attack, but it is important that you speak to someone if you are feeling overwhelmed by these feelings. * If you are having chest pain, call 911 for an ambulance. Do NOT drive yourself to the hospital. * Ask your family members to learn CPR. * Learn to take your own blood pressure and pulse. Keep a record of your results. Ask your doctor when you should seek emergency medical attention. He or she will tell you which blood pressure reading is dangerous. Lifestyle Changes: * Maintain a healthy weight. Get help to lose any extra pounds. * Cut back on salt. * Limit canned, dried, packaged, and fast foods. * Don't add salt to your food. * Season foods with herbs instead of salt when you cook. * Break the smoking habit. Enroll in a stop-smoking program to improve your chances of success. * Limit fatty foods. * Ask your doctor about having your lipid levels checked regularly. * Build up your activity according to your doctor's recommendation. * Ask your doctor when it's okay to resume sexual activity. * Tell your doctor about any erectile dysfunction (ED) medication you are taking. Some ED medications are not safe if you take certain heart medications. * Try to manage stress. Follow Up: It is important for you to keep your follow up appointments with your medical provider. Total Time Total Time Spent Total Time Spent (In Minutes): It required greater than 30 minutes to prepare this patient for discharge. Coding Level of Care Code 66947 INP/OBS DISCH >30 MIN Diagnoses STEMI (ST elevation myocardial infarction) I21.02 Involved coronary artery: LAD coronary artery Chronic kidney disease, stage 3b N18.32
[2023-12-09 09:49] VITALS: BP 105/70; PULSE 63
--- NOTE | 2023-12-09 14:52 | Cardiology Progress Note ---
Date of Service December 09, 2023 Assessment & Plan (1) CAD (coronary artery disease): Plan: Post PCI with 2 DESIREE to mid LAD 12/07/2023 Moderate nonculprit CAD 2. Preserved LV function with apical wall motion abnormalityecho 12/2023 3. Stage III CKD 4. Anemia 5. Mild mitral regurgitation. From a cardiac standpoint OK with discharge today. Continue DAPT with aspirin, ticagrelor. Likely transition to clopidogrel after 1 month Transition to Toprol-XL at discharge Continue current lisinopril Continue current statin Follow-up with me in 2 weeks. Admission and Anticipated Discharge Date Admission Date: December 07, 2023 Subjective Feeling well. No chest pain. No other new concerns. Ready to go home. Telemetry -- no events. Review of Systems Review of Systems: All systems reviewed & are unremarkable except as noted in HPI & below Physical Exam Physical Exam: General: Comfortable HEENT: Sclerae anicteric Lungs: Clear anteriorly Cardiac: Regular rate and rhythm, no murmurs. Vascular: 2+ radial pulse, ecchymosis and swelling but no appreciable hematoma. Intact distal sensation/capillary refill Abdomen: Soft, nontender Extremities: Well perfused, no peripheral edema Neuro: Nonfocal Psych: Alert orient x3, normal affect and mood Results & Data Vital Signs (Past 12 Hours) Vital Signs Temp Pulse Pulse Resp BP BP Pulse Ox 12/09/23 09:47 97.3 F L 63 17 105/70 94/60 L 97 12/09/23 08:00 58 L 12/09/23 07:26 97.3 F L 63 17 94/60 L 97 12/09/23 02:53 97.3 F L 65 14 106/65 98 O2 Del Method 12/09/23 09:47 12/09/23 08:00 12/09/23 07:26 Room Air 12/09/23 02:53 Room Air PG Care Time/CCT Total # of Minutes Spent Total Time Spent with Patient: Total time spent is greater than 50% in coordination of care (as documented) at patient's floor/unit and/or counseling patient: Coding Level of Care Code 90178 SUB INP/OBS CARE 2/35MIN Diagnoses CAD (coronary artery disease) I25.10
== END 2023-12-09 11:08 | disposition home or self-care (01) | DRG 322 ==
LOC: ED 10:50 → CC 11:20 → 1E 11:21 → SUATTDRO 11:21 → CC 11:46 → 4W 12-08 19:37

== ENCOUNTER 2024-09-14 16:25 | Inpatient (IN) ==
--- NOTE | 2024-09-14 16:44 | Emergency Department Note ---
History of Present Illness General Chief complaint: Toe Injury/Pain Stated complaint: PAIN IN RT TOE Time Seen by Provider: 09/14/24 16:44 History of Present Illness Maximum Pain Intensity: 6 This is an 84-year-old male that presents to the emergency department with complaints of "right second toe infection". The patient denies any trauma or injury. He is notes that on September 05 he began with some erythema to the right second toe, was on prednisone for period of time for treatment of suspected gout/pseudogout and notes progressive symptoms. No fevers or chills. No nausea or vomiting. He notes that he was seen today by PCP, started on oral antibiotics and had outpatient x-ray. He was referred here noting x-ray showing "osteolysis/destructive changes centered about the second PIP joint, with overlying soft tissue swelling". Per radiologist this favor infectious etiology such as septic arthritis/osteomyelitis over gouty arthropathy. Home Medications Medication Instructions Recorded Confirmed Type finasteride 5 mg tablet 5 mg PO DAILY 12/07/23 09/14/24 History aspirin 81 mg tablet,delayed 81 mg PO QAM #90 tabs 12/09/23 09/14/24 Rx release tamsulosin 0.4 mg capsule 0.4 mg PO DAILY PRN Chest Pain 01/07/24 09/14/24 History atorvastatin 80 mg tablet 80 mg PO QAM #90 tabs 02/23/24 09/14/24 Rx ticagrelor 90 mg tablet (Brilinta) 90 mg PO BID #180 tabs 02/23/24 09/14/24 Rx prednisone 2.5 mg tablet 2.5 mg PO DAILY #90 tabs 04/21/24 09/14/24 Rx allopurinol 300 mg tablet 300 mg PO DAILY #180 tabs 08/25/24 09/14/24 Rx nitroglycerin 0.4 mg sublingual 0.4 mg sublingual Q5M PRN chest 08/30/24 09/14/24 Rx tablet pain #14 tabs clindamycin HCl 300 mg capsule 300 mg PO Q6H 5 days #20 caps 09/14/24 09/14/24 Rx Allergies Allergy/AdvReac Type Severity Reaction Status Date / Time sulfamethoxazole AdvReac Intermediate Gastrointestinal Verified 09/14/24 11:02 [From Bactrim] Upset trimethoprim [From Bactrim] AdvReac Intermediate Gastrointestinal Verified 09/14/24 11:02 Upset Past Med/Surg History Problem List (Updated 09/15/24 @ 01:16 by Enrique Polk PA-C) Acute osteomyelitis of toe of right foot (Acute) Osteomyelitis Mixed hyperlipidemia Gout of multiple sites Current chronic use of systemic steroids CAD (coronary artery disease) Medical History Pure hypertriglyceridemia Hypertension Chronic kidney disease, stage 3b Chronic tophaceous gout STEMI (ST elevation myocardial infarction) Prostate cancer Surgical History History of heart surgery History of wisdom tooth extraction History of appendectomy Family History Father Prostate cancer Mother Pancreatic cancer Denies family history of Ovarian cancer Diabetes Alzheimer disease Bipolar disorder Dementia Depression Heart disease Kidney disease Myocardial infarction Breast cancer Lung cancer COPD (chronic obstructive pulmonary disease) Colorectal cancer Hypertension Colonic polyp Stroke Asthma Social History Smoking Status: Never smoker Second Hand Exposure: No; Do You Dip or Chew Tobacco: No; Hx Alcohol Use: No Hx Substance Use: No Preferred Language: Lithuanian Communication Ability: Effective Visual Impairment: Limited Hearing Ability: Normal Marketing Services Coordinator Required: No Beliefs That Will Affect Care: None Current Living Situation: Spouse Current Living Situation Comment: LIVWS WITH AND GRANDDAUGHTER current occupational status: employed 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 [employer] How many Children do You have: 4 Feels Safe at Home: Yes Safety Concerns: Feels Safe At This Time Childhood Exposure to Second-Hand Smoke: Yes Diet: regular caffeine: No Dental Care, Regularly: No Physical Activity Frequency Comment: 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 Seatbelt Use: always Sunscreen Use: No Do you think of yourself as: straight/heterosexual Gender Identity: Male Assistive Devices: Glasses Review of Systems A total of 10 systems reviewed and were otherwise negative Physical Exam Vital Signs Vital Signs - 24 hr 09/14/24 16:29 09/14/24 16:50 09/14/24 16:53 Temperature 36.7 C Temperature Source Oral Pulse Rate 91 H 98 H Pulse Rate [Apical] Respiratory Rate 19 Respiratory Effort / Characteristics Non-Labored Spontaneous Respiratory Depth Normal Respiratory Pattern Regular Blood Pressure 136/76 Blood Pressure [Right Radial Artery] Blood Pressure Mean 96 Blood Pressure Mean [Right Radial Artery] Pulse Oximetry 97 Oxygen Delivery Method Room Air Room Air Sepsis Recent Fever Within 48 Hours No Sepsis New/Unexplained Change in Mental Status N/A Sepsis Action Taken by Nursing No Action Required 09/14/24 16:53 09/14/24 18:25 Temperature Temperature Source Pulse Rate 72 Pulse Rate [Apical] 92 H Respiratory Rate 16 16 Respiratory Effort / Characteristics Non-Labored Spontaneous Respiratory Depth Normal Respiratory Pattern Blood Pressure Blood Pressure [Right Radial Artery] 141/95 H Blood Pressure Mean Blood Pressure Mean [Right Radial Artery] 110 Pulse Oximetry 97 99 Oxygen Delivery Method Room Air Room Air Sepsis Recent Fever Within 48 Hours Sepsis New/Unexplained Change in Mental Status Sepsis Action Taken by Nursing VITAL SIGNS - Vital signs and nursing notes were reviewed. Stable and afebrile. GENERAL -84-year-old male appearing his stated age who is in no acute distress. Communicates well with provider and answers questions appropriately. SKIN -right second toe is with diffuse erythema and edema tracking to the neighboring digits and within the soft tissue overlying the second MTP joint. There is a small wound to the lateral aspect of the mid right second toe with purulence. HEAD - NC/AT. EYES - PERRL with EOMI bilaterally. Sclera anicteric. EARS - No deformities of external structures noted on gross examination bilaterally. NOSE - Midline and without cyanosis. No epistaxis or purulent drainage noted. MOUTH/OROPHARYNX - Without perioral cyanosis. NECK - No nuchal rigidity. LUNGS - CTA CARDIAC - RRR EXTREMITIES - No clubbing or peripheral cyanosis. Skin as above. Diffuse erythema and edema to the right second toe. Sensory intact throughout the right lower extremity. Right dorsalis pedis pulse within normal limits. +5/5 strength noted in UE/LE bilaterally. NEUROLOGIC -sensory intact throughout the right lower extremity without deficit. PSYCH -alert, oriented and pleasant on exam Course Administered Medications Heparin Sodium (Porcine) (Heparin Sod 5,000 Unit/0.5 Ml Vial) 5,000 units SQ Q12 PAULINE Stop: 10/14/24 22:09 Last Admin: 09/14/24 23:17 Dose: 5,000 units Documented By: MICHELLE Ticagrelor (Ticagrelor 90 Mg Tab) 90 mg PO BID [facility] Stop: 10/14/24 21:47 Last Admin: 09/14/24 23:17 Dose: 90 mg Documented By: MICHELLE Discontinued Medications Cefepime HCl (Maxipime 2000mg) 2,000 mg in 20 mls @ 5 mls/min IV NOW STA; Protocol Stop: 09/14/24 17:38 Last Admin: 09/14/24 18:05 Dose: 5 mls/min Documented By: JOHN Vancomycin HCl 1,750 mg/ (Sodium Chloride) 535 mls @ 200 mls/hr IV NOW ONE Stop: 09/14/24 20:33 Last Infusion: 09/14/24 21:32 Dose: Infused Documented By: Admin: 09/14/24 18:25 Dose: 200 mls/hr Documented By: JOHN Medical Decision Making Laboratory Data 09/14/24 16:51 09/14/24 16:51 Lab Results 09/14/24 09/14/24 Range/Units 16:51 16:57 WBC 10.50 (4.8-10.8) K/ul RBC 3.84 L (4.70-6.10) M/uL Hgb 12.7 L (14.0-18.0) g/dl Hct 38.4 L (42.0-52.0) % MCV 100.0 (80.0-100.0) fL MCH 33.1 (25.0-34.0) pg MCHC 33.1 (32.0-36.0) g/dL RDW Std Deviation 51.4 H (36.4-46.3) fL RDW Coeff of Rupali 14.2 (11.5-14.5) % Plt Count 212 (130-400) K/uL MPV 11.0 (9.4-12.4) fL Immature Gran % (Auto) 2.1 % Neut % (Auto) 82.5 % Lymph % (Auto) 7.3 % [place] % (Auto) 6.4 % Eos % (Auto) 1.4 % Baso % (Auto) 0.3 % Neut # (Auto) 8.66 H (1.40-6.50) K/uL Lymph # (Auto) 0.77 L (1.20-3.40) K/uL [place] # (Auto) 0.67 H (0.11-0.59) K/uL Eos # (Auto) 0.15 (0.00-0.50) K/uL Baso # (Auto) 0.03 (0.00-0.20) K/uL Immature Gran # (Auto) 0.22 H (0.01-0.20) K/uL ESR 42 H (0-20) mm/hr PT 12.5 H (9.0-12.0) Seconds INR 1.2 H (0.9-1.1) APTT 26 (21-31) Seconds PTT Ratio 1.0 Sodium 138 (136-145) mmol/L Potassium 4.0 (3.5-5.1) mmol/L Chloride 106 (98-107) mmol/L Carbon Dioxide 25 (21-32) mmol/L Anion Gap 7 (3-11) BUN 28 H (6-23) mg/dl Creatinine 1.41 H (0.6-1.4) mg/dl Est Cr Clr Drug Dosing 40.3 ml/min eGFR 49.14 BUN/Creatinine Ratio 19.9 (10-20) Glucose 150 H (70-99(Fasting)) mg/dl Lactate 1.2 (0.4-2.0) mmol/L Calcium 8.7 (8.6-10.3) mg/dl Magnesium 2.0 (1.7-2.4) mg/dl Total Bilirubin 0.9 (0.2-1.0) mg/dl AST 13 (13-39) U/L ALT 15 (7-52) U/L Alkaline Phosphatase 85 (34-104) U/L Troponin I High Sens 7.5 (0-20) pg/ml C-Reactive Protein 1.87 H (0-0.5) mg/dl Total Protein 7.1 (6.0-8.3) gm/dl Albumin 3.9 (3.4-5.0) gm/dl Globulin 3.2 (2.5-4.0) gm/dl Albumin/Globulin Ratio 1.2 (0.9-2) Procalcitonin 0.08 (0-0.5) ng/ml Imaging Data Radiologist's Impression: Foot X-Ray 09/14/24 19:38 Exam(s): XR RIGHT FOOT, 3+ views EXAM: XR Right Foot Complete, 3 or More Views CLINICAL HISTORY: Reason for exam: R second toe osteo. TECHNIQUE: Frontal, lateral and oblique views of the right foot. COMPARISON: None FINDINGS: Bones/joints: No displaced fracture or dislocation identified. Moderate degenerative change of the right 1st MTP joint. Mild degenerative change of the right 1st interphalangeal joint. Degenerative change of the right 2nd PIP joint with periarticular lucency, raising concern for osteomyelitis. Plantar calcaneal spur. Degenerative changes of the midfoot. Soft tissues: Soft tissue swelling, most severely involving the right 2nd digit. No radiopaque foreign body identified. IMPRESSION: 1. Lucency along the right 2nd PIP joint, raising concern for osteomyelitis. 2. Soft tissue swelling, most severely involving the right 2nd digit. Electronically signed by: Haily Yu M.D. 09/14/24 21:26 PM MDM Narrative Patient was seen and evaluated as above in room A03. Review was performed of triage nursing notes and vital signs. I did review PCP visits. After obtaining a thorough history and physical examination the above work up was performed. Patient presents to us today for evaluation of potential infectious etiologies right second toe. It does clinically appear to be infected on exam. There is erythema, edema and purulence to the lateral aspect of the digit. No reported trauma or injury. I was able to enlist the help of our ED case management service to obtain the x-ray report. We attempted to obtain images from the outpatient x-rays but unfortunately have been unsuccessful thus far. The patient does have wound culture pending at this time obtained earlier today at PCP office. An EKG was performed prior to me evaluating the patient. This reveals sinus rhythm with PACs at a rate of 87 bpm. QTc 457. QRS 74. No ST elevation on this rhythm tracing. Options of care were discussed with the patient. IV access was established. Labs were drawn. There is no leukocytosis. There is minor anemia with hemoglobin of 12.7. INR 1.2. Creatinine 1.41. Procalcitonin detectable but within normal range at 0.08. Urinalysis without sign of infection. Blood cultures ordered. IV antibiotics ordered. It is felt that the benefit of the antibiotics outweigh risk. Although gouty arthropathy could appear similar, the nature of the toe appearance is concerning for that of infectious etiology at this time. I do believe that further evaluation and management in the inpatient setting is warranted. Case discussed with the hospitalist service. Please refer to further documentation regarding his stay. In the evaluation and treatment of this patient the following differential diagnoses were entertained: Gouty arthropathy, cellulitis, osteomyelitis, retained foreign body, fracture, among others Impression & Plan Acute osteomyelitis of toe of right foot Discharge Plan Visit Data Chief Complaint: Toe Injury/Pain Stated Complaint: PAIN IN RT TOE ED Provider: Gali Tello ED Midlevel Provider: Enrique Polk Discharge Problem: Acute osteomyelitis of toe of right foot Patient Disposition: Admitted As Inpatient Condition: Fair Discharge Instructions Interventions: ED Discharge Assessment Last Done: 09/14/24 21:34
[2024-09-14 17:11] LABS: Hematocrit (blood only) 38.4 % (42.0-52.0); Hemoglobin 12.7 g/dl (14.0-18.0); Immature Granulocytes # (auto) 0.22 K/uL (0.01-0.20); Immature Granulocytes % (auto) 2.1 %; Mean Corpuscular Hemoglobin 33.1 pg (25.0-34.0); Mean Corpuscular Volume 100.0 fL (80.0-100.0); Platelet Count 212 K/uL (130-400); RDW Standard Deviation 51.4 fL (36.4-46.3); Red Blood Count 3.84 M/uL (4.70-6.10); White Blood Count 10.50 K/ul (4.8-10.8)
[2024-09-14 17:27] LABS: Alanine Aminotransferase 15.0 U/L (7-52); Albumin Globulin Ratio 1.2 (0.9-2); Alkaline Phosphatase 85.0 U/L (34-104); Anion Gap 7.0 (3-11); Bilirubin,Total 0.9 mg/dl (0.2-1.0); Blood Urea Nitrogen 28.0 mg/dl (6-23); Calcium 8.7 mg/dl (8.6-10.3); Carbon Dioxide 25.0 mmol/L (21-32); Chloride 106.0 mmol/L (98-107); Creatinine Clr Calc Pharmacy 40.3 ml/min; Globulin 3.2 gm/dl (2.5-4.0); Glucose 150.0 mg/dl (70-99(Fasting)); Magnesium 2.0 mg/dl (1.7-2.4); Potassium 4.0 mmol/L (3.5-5.1); Sodium 138.0 mmol/L (136-145); Total Protein 7.1 gm/dl (6.0-8.3)
[2024-09-14 17:42] LABS: INR 1.2 (0.9-1.1); Partial Thromboplastin Time 26 Seconds (21-31); Prothrombin Time 12.5 Seconds (9.0-12.0)
[2024-09-14] MEDS ORDERED: VANCOMYCIN CONSULT ACTIVE PRN ×2 (17:53→21:48)
[2024-09-14] MEDS: CEFEPIME 2000MG 2,000 MG/20 ML SYR IV STA (18:05)
--- NOTE | 2024-09-14 18:24 | History & Physical Report ---
"Date of Service September 14, 2024 Assessment & Plan (1) Osteomyelitis: (2) Gout of multiple sites: (3) Current chronic use of systemic steroids: (4) CAD (coronary artery disease): (5) Mixed hyperlipidemia: Plan This patient is an 84-year-old male who presented for a worsening right second toe infection. He was sent in by his PCP on after having a right foot x-ray done outpatient revealing septic arthritis versus osteomyelitis. Clinically, patient reports no pain in his toe at rest. No reported fevers at home. No prosthetic valves or hardware in the right leg. #Osteomyelitis Outpatient [facility] x-ray of the right foot on 09/14 obtained (see paper chart) Reveals osteolysis/destructive changes centered about the second PIP joint favoring infectious etiology (septic arthritis/osteomyelitis) over gouty arthropathy Repeat x-ray ordered CRP and ESR ordered, pending No leukocytosis; afebrile; not septic Wound culture obtained Blood cultures drawn Podiatry consult appreciated N.p.o. 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 Patient reports he normally took allopurinol 300 mg x 2 tablets daily, but cut back to 1 tablet daily a couple weeks ago He is concerned that cutting back led to this gouty arthropathy/septic arthritis Plan to restart patient on allopurinol 300 mg x 2 tablets daily (total 600 mg daily) Continue prednisone 2.5 mg daily #CAD | H/o [place] s/p DESIREE in December 2023 Continue Brilinta BID Continue aspirin #HLD Continue atorvastatin Disposition: Admit to [facility] VTE PPx: Continue DAPT for heart stents; will defer chemical DVT PPx overnight in the event patient requires amputation of his toe History of Present Illness Chief Complaint: Toe injury/pain Primary Care Provider: SOILA Sanchez Mr. Pearce is an 84-year-old male with PMH of mixed hyperlipidemia, gout, prostate cancer, and CAD. He presented on 09/14 at the behest of his PCP for a right second toe injury. Previously they thought he was being treated for gout, however he was called by his PCP today after obtaining an outpatient x-ray of the right foot showing septic arthritis, osteomyelitis. Patient reports no injuries to his right second toe. He first noticed that his toe was becoming red and swollen on September 05. He has been taking pictures of the toe, and reports it has been gradually worsening. He does not experience any pain in the toe at rest, but does have some pain when he bears weight on it and walks around. The pain remains in his toe and does not shoot up his leg. No history of MRSA infections. However, he does report purulent drainage recently started draining from his toe and ending up on his socks. Patient was up on his feet a lot yesterday, and took 600 mg of ibuprofen for the pain; he works at a [facility] [employer] [facility] [employer] [facility]. He also took his regular morning medicine today. Only recent change in medication is that he stopped metoprolol. Patient does have a history of gout, and is normally on a large dose of allopurinol (300 mg tablets x 2 daily; total 600 mg). He recently cut back his dosage to 1 tablet 2 weeks ago, and is unsure if this is what caused the gout to flare. He does follow with rheumatology, and is currently on a small dose of prednisone daily; has been on chronic prednisone for the past 2 years. No history of prosthetics in the right leg. No history of prosthetic valves. Patient is currently on aspirin and Brilinta for history of an [place] in November s/p heart stents. Patient denies smoking, tobacco use, recent alcohol use. No history of diabetes. Vital stable at time of mission. ED course: Vancomycin 1750 mg IV Cefepime 2000 mg IV ROS: Patient endorses intermittent toe pain when bearing weight, and second right toe redness/swelling/purulent drainage. Patient denies fever, chills, night-sweats, dizziness/lightheadedness, chest pain, SOB, abdominal pain, N/V/D, burning with urination, or blood in the urine/stool. Allergies Allergy/AdvReac Type Severity Reaction Status Date / Time sulfamethoxazole AdvReac Intermediate Gastrointestinal Verified 09/14/24 11:02 [From Bactrim] Upset trimethoprim [From Bactrim] AdvReac Intermediate Gastrointestinal Verified 09/14/24 11:02 Upset Home Medications Medication Instructions Recorded Confirmed Type finasteride 5 mg tablet 5 mg PO DAILY 12/07/23 09/14/24 History aspirin 81 mg tablet,delayed 81 mg PO QAM #90 tabs 12/09/23 09/14/24 Rx release tamsulosin 0.4 mg capsule 0.4 mg PO DAILY PRN Chest Pain 01/07/24 09/14/24 History atorvastatin 80 mg tablet 80 mg PO QAM #90 tabs 02/23/24 09/14/24 Rx ticagrelor 90 mg tablet (Brilinta) 90 mg PO BID #180 tabs 02/23/24 09/14/24 Rx prednisone 2.5 mg tablet 2.5 mg PO DAILY #90 tabs 04/21/24 09/14/24 Rx allopurinol 300 mg tablet 300 mg PO DAILY #180 tabs 08/25/24 09/14/24 Rx nitroglycerin 0.4 mg sublingual 0.4 mg sublingual Q5M PRN chest 08/30/24 09/14/24 Rx tablet pain #14 tabs clindamycin HCl 300 mg capsule 300 mg PO Q6H 5 days #20 caps 09/14/24 09/14/24 Rx Past Med/Surg History Problem List (Updated 09/14/24 @ 19:19 by Juanjose Liz PA-C) Osteomyelitis Mixed hyperlipidemia Gout of multiple sites Current chronic use of systemic steroids CAD (coronary artery disease) Medical History Pure hypertriglyceridemia Hypertension Chronic kidney disease, stage 3b Chronic tophaceous gout STEMI (ST elevation myocardial infarction) Prostate cancer Surgical History History of heart surgery History of wisdom tooth extraction History of appendectomy Family History Father Prostate cancer Mother Pancreatic cancer Denies family history of Ovarian cancer Diabetes Alzheimer disease Bipolar disorder Dementia Depression Heart disease Kidney disease Myocardial infarction Breast cancer Lung cancer COPD (chronic obstructive pulmonary disease) Colorectal cancer Hypertension Colonic polyp Stroke Asthma Social History Smoking Status: Never smoker Second Hand Exposure: No; Do You Dip or Chew Tobacco: No; Hx Alcohol Use: No Hx Substance Use: No Preferred Language: Tristanian Communication Ability: Effective Visual Impairment: Limited Hearing Ability: Normal Roller Engraver Required: No Beliefs That Will Affect Care: None Current Living Situation: Spouse current occupational status: employed 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 [employer] How many Children do You have: 4 Feels Safe at Home: Yes Childhood Exposure to Second-Hand Smoke: Yes Diet: regular caffeine: No Dental Care, Regularly: No Physical Activity Frequency Comment: 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 Seatbelt Use: always Sunscreen Use: No Do you think of yourself as: straight/heterosexual Gender Identity: Male Assistive Devices: None Review of Systems 2 Review of Systems: See HPI above Physical Exam 2 Physical Exam: General: no acute distress; pleasant affect; non-toxic appearing; well- nourished; cooperative; SpO2 90% on RA HEENT: normocephalic, atraumatic; no scleral icterus; PERRLA; poor dentition; vision and hearing grossly intact Neck: supple; trachea midline Skin: warm, dry without signs of tenting; no cyanosis; no rashes, bruising, lesions, or erythema noted CV: chest wall NTP; RRR; S1/S2 normal; no murmurs/rubs/gallops; pulses intact and symmetric at radial, DP, and PT Lungs: no acute respiratory distress; symmetrical chest wall expansion; clear breath sounds across all lung boyd w/o adventitious sounds; no wheezing ABD: Soft, NTP; BS present; no rebound/guarding; no distention MSK: no tics or fasciculations; no edema noted in the LEs b/l, nonerythematous Right foot: Right 2nd and 3rd toe are erythematous and swollen at the PIP joints; purulent drainage appreciated between the toes (see photo below); toes are tender to palpation; patient is able to wiggle toes, flex ankle, and flex knee without any difficulty or strength deficits Neuro: A&Ox3; normal mood and affect; fluent speech; no focal deficits; patient report sensation is intact and symmetric motion was bilaterally assessed via light touch Results & Data Results & Data Vital Signs (Past 12 Hours) Vital Signs Temp Pulse Resp BP Pulse Ox O2 Del Method 09/14/24 16:53 72 16 97 Room Air 09/14/24 16:53 Room Air 09/14/24 16:50 98 H 09/14/24 16:29 36.7 C 91 H 19 136/76 97 Room Air Laboratory Results Abnormal lab results 07/16/25 Range/Units 16:51 RBC 3.84 L (4.70-6.10) M/uL Hgb 12.7 L (14.0-18.0) g/dl Hct 38.4 L (42.0-52.0) % RDW Std Deviation 51.4 H (36.4-46.3) fL Neut # (Auto) 8.66 H (1.40-6.50) K/uL Lymph # (Auto) 0.77 L (1.20-3.40) K/uL [place] # (Auto) 0.67 H (0.11-0.59) K/uL Immature Gran # (Auto) 0.22 H (0.01-0.20) K/uL PT 12.5 H (9.0-12.0) Seconds INR 1.2 H (0.9-1.1) BUN 28 H (6-23) mg/dl Creatinine 1.41 H (0.6-1.4) mg/dl Glucose 150 H (70-99(Fasting)) mg/dl Diagnostic Findings Right foot x-ray obtained [facility] records revealed the following: Right XR foot 3 or more views Impression 1. Osteolysis/destructive changes centered about the second PIP joint, with overlying soft tissue swelling. Favor infectious etiology (septic arthritis/osteomyelitis) over gouty arthropathy. MRI should be considered for further evaluation. 2. Chronic appearing erosive changes about the first MTP and first TMT joints, suggestive of gouty arthropathy. ECG Additional Comments: ECG revealed sinus rhythm with PACs at 87 bpm; QTc 457 Code Status & VTE Plan Code Status Full code VTE Prophylaxis Plan VTE Prophylaxis will be ordered: Yes Supervising Physician Co-Signing Physician Notes I personally saw and examined the patient. I independently reviewed the labs, EKG, imaging, problem list, medication list, past medical history and family history. I verified all bray points and agree with Juanjose Liz PA-C with the following exceptions and/or additions: 84 year old male presents to the ER with right 2nd toe erythema and swelling since September 05. O/E HS RRR, no murmurs, Chest CTAB, Abdo SNT, 2nd toe erythema and swelling and base of 3rd toe A/P 2nd toe acute OM and cellulitis, questionable gout - vancomycin + ceftriaxone, consult podiatry PG Care Time/CCT Total # of Minutes Spent Total Time Spent with Patient: Total time spent is greater than 50% in coordination of care (as documented) at patient's floor/unit and/or counseling patient: Coding [place] [address] INT INP/OBS CARE 3/75MIN Patient Type Established Medical Decision Making Moderate Complexity Diagnoses Osteomyelitis M86.9 Gout of multiple sites M10.9 Current chronic use of systemic steroids Z79.52 Coronary artery disease involving [place] coronary artery of [place] heart without angina pectoris I25.10 Associated angina: without angina Coronary Disease-Associated Artery/Lesion type: [place] artery [place] vs. transplanted heart: [place] heart Mixed hyperlipidemia E78.2 (4) CAD (coronary artery disease) Associated angina: without angina Coronary Disease-Associated Artery/Lesion type: [place] artery [place] vs. transplanted heart: [place] heart Qualified Code(s): I25.10 - Atherosclerotic heart disease of [place] coronary artery without angina pectoris"
[2024-09-14] MEDS: VANCOMYCIN HCL 1,750 MG in SODIUM CHLORIDE 0.9% 500 ML IV ONE (18:25)
[2024-09-14 20:48] LABS: Appearance Urine Clear (Clear); Bacteria Urine Automated None Seen (None Seen); Cast Urine Automated 0-2 /lpf (0-2); Epithelial Cell Urine Auto 0-2 /hpf (0-2); Glucose Urine UA Negative (Negative); RBC Urine Automated >20 /hpf (0-2); WBC Urine Automated 0-5 /hpf (0-5)
--- NOTE | 2024-09-14 21:27 | XRay Report ---
Exam(s): XR RIGHT FOOT, 3+ views EXAM: XR Right Foot Complete, 3 or More Views CLINICAL HISTORY: Reason for exam: R second toe osteo. TECHNIQUE: Frontal, lateral and oblique views of the right foot. COMPARISON: None FINDINGS: Bones/joints: No displaced fracture or dislocation identified. Moderate degenerative change of the right 1st MTP joint. Mild degenerative change of the right 1st interphalangeal joint. Degenerative change of the right 2nd PIP joint with periarticular lucency, raising concern for osteomyelitis. Plantar calcaneal spur. Degenerative changes of the midfoot. Soft tissues: Soft tissue swelling, most severely involving the right 2nd digit. No radiopaque foreign body identified. IMPRESSION: 1. Lucency along the right 2nd PIP joint, raising concern for osteomyelitis. 2. Soft tissue swelling, most severely involving the right 2nd digit. Electronically signed by: Haily Yu M.D. 09/14/24 21:26 PM
[2024-09-14] MEDS ORDERED: MELATONIN 3 MG TAB PO PRN (21:48)
--- NOTE | 2024-09-14 22:55 | Podiatry Consultation ---
Date of Consultation September 14, 2024 Assessment & Plan (1) Acute osteomyelitis of toe of right foot: (2) Osteomyelitis: Laterality: right Osteomyelitis location: foot Osteomyelitis type: other acute Qualified Code(s): M86.171 - Other acute osteomyelitis, right ankle and foot (3) Gout of multiple sites: Chronicity: chronic Plan Ulceration the lateral aspect of the right second toe, osteomyelitis right second toe, cellulitis right second toe, gout right second toe No leukocytosis, afebrile, not septic. Elevated ESR and CRP. Procalcitonin with the normal limits. Wound to the right second toe was probed and extends to the level of bone corresponding to area concerning for possible osteomyelitis on plain film radiographs. Discussed treatment options with patient including amputation versus wound care and IV antibiotics for treatment of ulceration and underlying osteomyelitis. Explained to patient that my recommendation would be for amputation of the digit as more definitive treatment for osteomyelitis and in this particular situation more likely to be successful at eradicating the condition. We discussed treatment course, social impact, health impact, risks and benefits of both conservative and surgical pathways. Discussed the possibility of need to return to the OR for further washout and closure. Discussed risks of slow or nonhealing wound, continued infection, pain, need for further surgery, loss of limb. Patient would like to move forward with amputation of the right second toe with attempted primary closure however he is aware that wound may need to be left open to heal secondarily or for delayed primary closure. Plan: Scheduled for right second toe amputation 09/15/2024 around 9:30am. Continue n.p.o. until postop. Weight bearing status: foot flat weightbearing in postop shoe right foot with walker to assist Wound care: I will perform initial postoperative dressing change 09/16/2024 with recommendations to follow. Range of motion: as tolerated of ankle, avoid range of motion of toes VTE Prophylaxis: okay from podiatric standpoint Antibiotics: broad-spectrum per medicine Pain Control: Multimodal Discharge Plan: pending clinical course Consults: Recommend infectious disease consultation Follow-up: Patient will follow-up with myself in 2 weeks for wound check and/or suture removal. 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 Presents to [facility] 09/14/2024 following recommendation from PCP we show earlier that day for evaluation osteomyelitis right second toe. Plain film radiographs 09/14/2024 showing signs of chronic arthritic gouty changes in addition to area of concern for possible osteomyelitis surrounding the interphalangeal joint of the right foot. Carlos first noticed increased redness and swelling to the right second toe on 09/05/2024 which he presumed to be the result of an acute gout attack. He has had multiple chronic recurrent gout attacks of the hands in the past and is currently on 600 mg allopurinol daily for maintenance. He reports attempting to reduce this dose to 300 few weeks ago and feels that this may have precipitated the attack to the right second toe. He was treated for acute gout of the right second toe with oral steroids and noted improvement initially however the redness and swelling never fully resolved. Few days ago he started to notice increased redness swelling drainage and odor from the toe which prompted a visit to his PCP who recommended evaluation in the emergency department after plain film radiographs of the foot showed concern for possible underlying osteomyelitis. The right foot has multiple bony changes consistent with chronic gouty arthritis including juxta articular erosions and many other small joints including the proximal interphalangeal joint of the second digit. Unfortunately laterally on the toe we do see signs of bony erosion more consistent with osteomyelitis. When correlated clinically patient has an open wound with purulent drainage that probes to bone. Patient lives at home with his and 28-year-old daughter in [place]. 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 He works at the [employer] 4 days a week and has a robust family support network in [place]. Allergies Allergy/AdvReac Type Severity Reaction Status Date / Time sulfamethoxazole AdvReac Intermediate Gastrointestinal Verified 09/14/24 11:02 [From Bactrim] Upset trimethoprim [From Bactrim] AdvReac Intermediate Gastrointestinal Verified 09/14/24 11:02 Upset Home Medications Medication Instructions Recorded Confirmed Type finasteride 5 mg tablet 5 mg PO DAILY 12/07/23 09/14/24 History aspirin 81 mg tablet,delayed 81 mg PO QAM #90 tabs 12/09/23 09/14/24 Rx release tamsulosin 0.4 mg capsule 0.4 mg PO DAILY PRN Chest Pain 11/07/24 07/16/25 History atorvastatin 80 mg tablet 80 mg PO QAM #90 tabs 02/23/24 09/14/24 Rx ticagrelor 90 mg tablet (Brilinta) 90 mg PO BID #180 tabs 02/23/24 09/14/24 Rx prednisone 2.5 mg tablet 2.5 mg PO DAILY #90 tabs 04/21/24 09/14/24 Rx allopurinol 300 mg tablet 300 mg PO DAILY #180 tabs 08/25/24 09/14/24 Rx nitroglycerin 0.4 mg sublingual 0.4 mg sublingual Q5M PRN chest 08/30/24 09/14/24 Rx tablet pain #14 tabs clindamycin HCl 300 mg capsule 300 mg PO Q6H 5 days #20 caps 09/14/24 09/14/24 Rx Patient History Medical History Pure hypertriglyceridemia Hypertension Chronic kidney disease, stage 3b Chronic tophaceous gout STEMI (ST elevation myocardial infarction) Prostate cancer Surgical History History of heart surgery History of wisdom tooth extraction History of appendectomy Family History Father Prostate cancer Mother Pancreatic cancer Denies family history of Ovarian cancer Diabetes Alzheimer disease Bipolar disorder Dementia Depression Heart disease Kidney disease Myocardial infarction Breast cancer Lung cancer COPD (chronic obstructive pulmonary disease) Colorectal cancer Hypertension Colonic polyp Stroke Asthma Social History Smoking Status: Never smoker Second Hand Exposure: No; Do You Dip or Chew Tobacco: No; Hx Alcohol Use: No Hx Substance Use: No Preferred Language: Slovenian Communication Ability: Effective Visual Impairment: Limited Hearing Ability: Normal Machine Cementer Required: No Beliefs That Will Affect Care: None Current Living Situation: Spouse Current Living Situation Comment: LIVWS WITH AND GRANDDAUGHTER current occupational status: employed 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 Reports mild pain in the right second toe at baseline. Physical Exam Physical Exam: Const: Appears well developed and well nourished. No signs of acute distress present. CV: Extremities: No cyanosis Capillary refill time is less than 2 seconds all digits of the bilateral foot. Posterior tibial and dorsalis pedis pulses are palpable bilateral. Neuro: Sensation intact to light touch in all areas of the foot and ankle. Psych: Mood/Affect: Mood is normal. Affect is normal. Cognition: Orientation is intact to person, place and time. Focused lower extremity musculoskeletal exam: Leg: No pain with compression of the calf muscle. Ankles: Normal to inspection and palpation. No swelling bilaterally. No tenderness bilaterally.Motor strength is intact. Range of motion pain-free and unlimited. Feet: Erythema and edema to the right second toe extending into the right forefoot. Superficial breakdown of skin to the medial aspect of the right second toe over the interphalangeal joint. Ulceration to the lateral aspect of the right second toe over the proximal interphalangeal joint which extends to the joint and bone with purulent drainage. Results & Data Vital Signs (Past 12 Hours) Vital Signs Temp Pulse Pulse Resp BP BP Pulse Ox 09/14/24 21:34 09/14/24 20:41 62 18 127/70 96 09/14/24 18:25 92 H 16 141/95 H 99 09/14/24 16:53 72 16 97 09/14/24 16:53 09/14/24 16:50 98 H 09/14/24 16:29 36.7 C 91 H 19 136/76 97 O2 Del Method 09/14/24 21:34 Room Air 09/14/24 20:41 Room Air 09/14/24 18:25 Room Air 09/14/24 16:53 Room Air 09/14/24 16:53 Room Air 09/14/24 16:50 09/14/24 16:29 Room Air Laboratory Results Spec: [id number] Collected: 09/14/24 Received: 09/14/[address]: Kaylen Costello CRNP Source: Toe,Right Second OV Order: Ordered: Surf Wnd Cul/Sm Procedure Result Verified Site Gram Stain Final 09/15/24 Gram Stain Result No WBCs Seen Rare Gram Positive Bacilli Rare Gram Positive Cocci WBC 7.91 Hemoglobin 11.6 Hematocrit 34.9 ESR 42 CRP 1.87 Procalcitonin 0.08 Diagnostic Findings X-ray right foot 3 views 09/14/2024: IMPRESSION: 1. Lucency along the right 2nd PIP joint, raising concern for osteomyelitis. 2. Soft tissue swelling, most severely involving the right 2nd digit. PG Care Time/CCT Total # of Minutes Spent Total Time Spent with Patient: Total time spent is greater than 50% in coordination of care (as documented) at patient's floor/unit and/or counseling patient: Coding Level of Care Code 49029 INT INP/OBS CARE 3/75MIN Diagnoses Acute osteomyelitis of toe of right foot M86.171 Other acute osteomyelitis of right foot M86.171 Laterality: right Osteomyelitis location: foot Osteomyelitis type: other acute Gout of multiple sites M10.9 Chronicity: chronic
[2024-09-14] MEDS: HEPARIN SOD 5,000 UNIT/0.5 ML VIAL SQ SCH (23:17)
[2024-09-14] MEDS: TICAGRELOR 90 MG TAB PO SCH (23:17)
[2024-09-15] MEDS: cefTRIAXone SODIUM 2,000 MG/50 ML BAG IV SCH (03:04)
[2024-09-15 07:52] LABS: Hematocrit (blood only) 34.9 % (42.0-52.0); Hemoglobin 11.6 g/dl (14.0-18.0); Immature Granulocytes # (auto) 0.24 K/uL (0.01-0.20); Immature Granulocytes % (auto) 3.0 %; Mean Corpuscular Hemoglobin 33.4 pg (25.0-34.0); Mean Corpuscular Volume 100.6 fL (80.0-100.0); Platelet Count 187 K/uL (130-400); RDW Standard Deviation 50.9 fL (36.4-46.3); Red Blood Count 3.47 M/uL (4.70-6.10); White Blood Count 7.91 K/ul (4.8-10.8)
[2024-09-15 08:08] LABS: Anion Gap 7.0 (3-11); Blood Urea Nitrogen 26.0 mg/dl (6-23); Calcium 8.4 mg/dl (8.6-10.3); Carbon Dioxide 24.0 mmol/L (21-32); Chloride 108.0 mmol/L (98-107); Creatinine Clr Calc Pharmacy 41.4 ml/min; Glucose 82.0 mg/dl (70-99(Fasting)); Potassium 4.3 mmol/L (3.5-5.1); Sodium 139.0 mmol/L (136-145)
[2024-09-15] MEDS ORDERED: PROPOFOL IV EMULSION 10 MG/ML 20 ML VIAL IV ONE ×2 (09:12→09:39)
[2024-09-15] MEDS ORDERED: ONDANSETRON INJ 2 MG/ML 2 ML VIAL ONE (09:12)
[2024-09-15] MEDS ORDERED: LIDOCAINE 2% 2 ML VIAL/AMP(20MG/ML) INFIL ONE (09:12)
[2024-09-15] MEDS: LACTATED RINGER'S 1,000 ML IV SCH (09:19)
--- NOTE | 2024-09-15 09:22 | Operative Report ---
PG Post Operative Report Pre & Post Diagnosis Operation Date: 09/15/24 07:00 Osteomyelitis right 2nd toe I identified the patient and participated in the time-out.: Yes Procedure Operation Date: 09/15/24 07:00 Amputation right 2nd toe Surgeon Mk Thurston DPM Quill Buncher And Sorter none Estimated Blood Loss 5 Findings Consistent with Post-Op Diagnosis Specimens 1. Pathology: Proximal margin right 2nd toe proximal phalanx to pathology. 2. Pathology: Right second toe to pathology. 3. Microbiology: Bone for culture right 2nd intermediate phalanx. Anesthesia Type MAC Complications none Description of Procedure Patient is brought in the operating room placed on the operating table in supine position. Timeout is held confirming correct patient, side, site, procedure with all necessary parties confirming. Following IV sedation local anesthesia is obtained about patient's right 2nd ray in a modified Edgar block fashion utilizing a total of 10 cc of 0.5% Marcaine plain in a modified Edgar block fashion. A well-padded nonsterile ankle tourniquet was placed about the patient's right ankle utilizing adequate cast padding protect soft tissues. The lower extremity was scrubbed prepped and draped to the level of the ankle tourniquet. Attention was directed to the right 2nd digit which is noted to be erythematous with ulceration to the distal aspect of the toe. A teardrop shaped incision is planned with a Skin Skribe at the base of the toe attempting to maintain adequate soft tissue for primary closure. 15 blade is utilized to create an incision which is carried deep to the level of bone. Bone of the distal aspect of the proximal phalanx is noted to be eroded into a conical shape consistent with preop diagnosis of osteomyelitis and necrosis. Proximal two thirds of the proximal phalanx appear to be quite firm healthy appearing bone clinically. Toe was disarticulated at the proximal interphalangeal joint passed from the operative field. Wound was flushed with copious amounts normal sterile saline. 15 blade was utilized to disarticulate the second digit at the metatarsop halangeal joint. On the back table proximal margin is cut from the proximal extent of the proximal phalanx and sent to pathology to evaluate for osteomyelitis. Wound is again flushed with copious amounts of normal sterile saline. Electrocautery was utilized to achieve hemostasis. There is noted that patient has adequate blood flow to the surgical site to assume reasonable healing potential from a clinical standpoint with multiple tiny open lumens circumferentially which require electrocautery for hemostasis. Approximately 0.25 g of vancomycin powder placed within the surgical wound to help reduce the risk of postoperative infection and wound contamination given this contaminated surgical environment. Surgical wound is flushed with copious amounts of normal sterile saline. Tendinous structures within the surgical wound are pulled distally cut and allowed to retract into proximal soft tissues. Surgical wound is evaluated and noted to be free of any necrotic tissue. Wound is again flushed copious amounts of normal sterile saline. Deep soft tissue structures were reapproximated with a 3-0 Vicryl in simple interrupted fashion in order to reapproximate soft tissues over the second metatarsal head in hopes to provide a barrier of protection at this layer early on and reduce the risk of hematoma formation in the space. Wound edges were reapproximated and closed with a 3-0 nylon in simple interrupted fashion. Foot is cleansed with normal sterile saline dried and dressed with Adaptic nonadherent gauze 4 x 4 fluff gauze ABD pad to the dorsum of the foot to protect soft tissue structures clean and lightly applied Coban to hold dressings in place. Patient tolerated procedure and anesthesia well. He was transferred to recovery room with vital signs stable and vascular status intact to the remaining digits of the operative foot. Following a brief period about postoperative monitoring recovery room patient will be transferred back to his bed on the medical floor for continued IV antibiotics and medical management. I was able to obtain reasonable margins from the known area of infection in both soft tissue and bone with amputation of the second toe at the m etatarsophalangeal joint. Would consider this a surgical cure for patient's osteomyelitis however he has ongoing soft tissue infection she needs to be managed through antibiotics. Following sensitivity results from wound culture and antibiotic adjustment I would be comfortable with patient discharging to home on oral antibiotics pending PT/OT and medical clearance. Plan: Weight bearing status: foot flat weightbearing in postop shoe right foot lower extremity Wound care: Will change surgical dressing postop day 1. VTE Prophylaxis: okay from podiatry standpoint Antibiotics: broad-spectrum per medicine Pain Control: Multimodal Discharge Plan: pending clinical course Follow-up: Patient will follow-up with myself in the podiatry clinic in 2 weeks of discharge I attest to the content of the Intraoperative Record and any orders documented therein. Any exceptions are noted below.
--- NOTE | 2024-09-15 09:23 | Pharmacy Report ---
Pharmacy PK ABX Note - Date of Service September 15, 2024 - Assessment and Plan Assessment 84 year old M receiving ceftriaxone/vancomycin for treatment of osteomyelitis of right toe. Pertinent microbiologic data includes: blood cultures pending. Plan for toe amputation today. Day # 1 of antimicrobial therapy. Plan Vancomycin * Loading dose: 1750 mg IV x 1 * Maintenance dose: 1000 mg IV every 24 hours * Regimen is predicted to achieve target AUC/YURI of 400-600 mg/L.hr * Random level ordered for: 09/16/24 with AM labs Pharmacy will continue to follow and will adjust dose/frequency as necessary. Thank you. Pharmacy has transitioned to AUC monitoring for vancomycin. AUC/YURI is the preferred PK/PD target and is associated with decreased risk of nephrotoxicity compared to traditional trough targets.
--- NOTE | 2024-09-15 09:23 | History & Physical Bridge Note ---
Date of Service September 15, 2024 History & Physical Bridge Note I have examined the patient, reviewed the History & Physical and in the interval since the performance of the History & Physical I have noted the following changes of clinical significance: no changes noted
--- NOTE | 2024-09-15 09:24 | Anesthesiology Consultation ---
Date of Service September 15, 2024 Assessment & Plan (1) Encounter for pre-operative examination: Chart Review Chart Review: Acceptable Risk for Surgery and Patient NOT seen in Pre Admission Testing Consults Requested none History Surgery Operation Date: 09/15/24 07:00 Proposed Procedures p Right Second Toe Amputation - Mk Bob PEARL Thurston Height/Weight Height: 5 ft 10 in Weight: 83.8 kg Allergies Allergy/AdvReac Type Severity Reaction Status Date / Time sulfamethoxazole AdvReac Intermediate Gastrointestinal Verified 09/14/24 11:02 [From Bactrim] Upset trimethoprim [From Bactrim] AdvReac Intermediate Gastrointestinal Verified 09/14/24 11:02 Upset Medications Home Medications Medication Instructions Recorded Confirmed Last Taken finasteride 5 mg tablet 5 mg PO DAILY 12/07/23 09/14/24 Unknown aspirin 81 mg tablet,delayed 81 mg PO QAM #90 tabs 12/09/23 09/14/24 Unknown release tamsulosin 0.4 mg capsule 0.4 mg PO DAILY PRN Chest Pain 01/07/24 09/14/24 Unknown atorvastatin 80 mg tablet 80 mg PO QAM #90 tabs 02/23/24 09/14/24 Unknown ticagrelor 90 mg tablet (Brilinta) 90 mg PO BID #180 tabs 02/23/24 09/14/24 Unknown prednisone 2.5 mg tablet 2.5 mg PO DAILY #90 tabs 04/21/24 09/14/24 Unknown allopurinol 300 mg tablet 300 mg PO DAILY #180 tabs 08/25/24 09/14/24 Unknown nitroglycerin 0.4 mg sublingual 0.4 mg sublingual Q5M PRN chest 08/30/24 09/14/24 Unknown tablet pain #14 tabs clindamycin HCl 300 mg capsule 300 mg PO Q6H 5 days #20 caps 09/14/24 09/14/24 Unknown Active Medications Generic Name Dose Route Start Last Admin Trade Name Freq PRN Reason Stop Dose Admin Heparin Sodium (Porcine) 5,000 units 09/14/24 22:10 09/14/24 23:17 Heparin Sod 5,000 Unit/0.5 Ml Vial SQ 10/14/24 22:09 5,000 units Q12 PAULINE Administration Ceftriaxone Sodium 2,000 mg in 50 mls @ 100 mls/hr 09/15/24 02:00 09/15/24 03:42 Rocephin IV 09/22/24 01:59 Infused Q24H PAULINE Infusion Lactated Ringer's 1,000 mls @ 15 mls/hr 09/15/24 09:30 09/15/24 09:19 Lr IV 09/18/24 09:29 15 mls/hr .Q24H PAULINE Administration Ticagrelor 90 mg 09/14/24 21:48 09/14/24 23:17 Ticagrelor 90 Mg Tab PO 10/14/24 21:47 90 mg BID PAULINE Administration NPO Date Last Intake of Fluids: 09/14/24 Time Last Intake of Fluids: 23:00 Date Last Intake of Solids: 09/14/24 Time Last Intake of Solids: 13:00 Past Medical History Medical History Pure hypertriglyceridemia Hypertension Chronic kidney disease, stage 3b Chronic tophaceous gout STEMI (ST elevation myocardial infarction) 12/07/2023 Prostate cancer Previously followed with [facility] Rad/Onc [facility] Urology, completed treatment in June 2020 Past Family History Family History Father Prostate cancer Mother Pancreatic cancer Denies family history of Ovarian cancer Diabetes Alzheimer disease Bipolar disorder Dementia Depression Heart disease Kidney disease Myocardial infarction Breast cancer Lung cancer COPD (chronic obstructive pulmonary disease) Colorectal cancer Hypertension Colonic polyp Stroke Asthma Past Surgical History Surgical History History of heart surgery stents placed 12/09/23 History of wisdom tooth extraction 1971? History of appendectomy age 12 Social History Smoking Status: Never smoker Do You Dip or Chew Tobacco: No Hx Alcohol Use: No Hx Substance Use: No substance use type: does not use Physical Exam Vital Signs Last Vital Signs Temp 97.9 F 09/15/24 09:06 Pulse 70 09/15/24 09:06 Resp 20 09/15/24 09:06 BP 126/65 09/15/24 09:06 Pulse Ox 99 09/15/24 09:06 O2 Del Method Room Air 09/15/24 09:06 Testing Laboratory Results 09/15/24 07:12 09/15/24 07:12 PT 12.5 Seconds (9.0-12.0) H 09/14/24 16:51 INR 1.2 (0.9-1.1) H 09/14/24 16:51 APTT 26 Seconds (21-31) 09/14/24 16:51 Urine Color Yellow 09/14/24 Unknown Urine Appearance Clear (Clear) 09/14/24 Unknown Urine pH 6.5 (4.5-7.5) 09/14/24 Unknown Ur Specific [place] 1.010 (1.000-1.030) 09/14/24 Unknown Urine Protein Negative (Negative) 09/14/24 Unknown Urine Glucose (UA) Negative (Negative) 09/14/24 Unknown Urine Ketones Negative (Negative) 09/14/24 Unknown Urine Nitrite Negative (Negative) 09/14/24 Unknown Ur Leukocyte Esterase Negative (Negative) 09/14/24 Unknown Urine WBC (Auto) 0-5 /hpf (0-5) 09/14/24 Unknown Urine RBC (Auto) >20 /hpf (0-2) H 09/14/24 Unknown U Hyaline Cast (Auto) 0-2 /lpf (0-2) 09/14/24 Unknown U Epithel Cells (Auto) 0-2 /hpf (0-2) 09/14/24 Unknown Urine Bacteria (Auto) None Seen (None Seen) 09/14/24 Unknown Electrocardiogram Date: 09/14/24 sinus rhythm with PACs, LAD Echocardiogram Date: 02/18/24 EF: 50-54 LV Function: normal
[2024-09-15] MEDS ORDERED: ATROPINE SULFATE 0.1 MG/ML 10ML SYR IV PRN (09:25)
[2024-09-15] MEDS ORDERED: ONDANSETRON INJ 2 MG/ML 2 ML VIAL IV PRN (09:25)
[2024-09-15] MEDS: BUPIVACAINE 0.5 % 5 MG/1 ML MPF 30ML VIAL ONE (09:34)
[2024-09-15] MEDS ORDERED: PHENYLEPHRINE 100MCG/ML 5ML SYR ONE (09:37)
[2024-09-15] MEDS: VANCOMYCIN HCL 1000MG/20ML VIAL ONE (09:57)
[2024-09-15] MEDS ORDERED: ePHEDrine sulfate 50 MG/5 ML SYR ONE (10:14)
--- NOTE | 2024-09-15 10:16 | Post Operative Brief Note ---
PG Immediate Post Op with CF Date of Surgery September 15, 2024 Pre & Post Diagnosis Operation Date: 09/15/24 07:00 Pre-Op Diagnosis: Right 2nd Toe Osteomyelitis Post-Op Diagnosis: Right 2nd Toe Osteomyelitis I identified the patient and participated in the time-out.: Yes Procedure Operation Date: 09/15/24 07:00 Actual Procedures p Right Second Toe Amputation(Right) - Mk Thurston DPM Surgeon Mk Thurston DPM Housing Installer none Estimated Blood Loss 5 Findings Consistent with Post-Op Diagnosis Specimens Specimen Description: Culture: 1. Right second toe Pathology: A. Proximal margin, proximal phalanx, right second toe B. Right 2nd toe Anesthesia Type MAC Complications none
[2024-09-15 10:41] VITALS: RESP 16
--- NOTE | 2024-09-15 10:42 | Anesthesiology Progress Note ---
Date of Service September 15, 2024 Anesthesia Post Procedure Vital Signs Vital Signs: Temp Pulse Pulse Pulse Resp BP BP 09/15/24 10:40 97.9 F 88 16 123/58 L 09/15/24 10:30 78 22 111/59 L 09/15/24 10:20 98.1 F 94 H 14 103/63 09/15/24 09:06 97.9 F 70 20 126/65 09/15/24 07:45 97.9 F 62 18 138/75 09/14/24 21:40 97.7 F 84 16 156/84 H 09/14/24 21:34 09/14/24 20:41 62 18 09/14/24 18:25 92 H 16 09/14/24 16:53 72 16 09/14/24 16:53 09/14/24 16:50 98 H 09/14/24 16:29 98.1 F 91 H 19 136/76 BP Pulse Ox O2 Del Method 09/15/24 10:40 95 Room Air 09/15/24 10:30 93 Room Air 09/15/24 10:20 98 Room Air 09/15/24 09:06 99 Room Air 09/15/24 07:45 99 Room Air 09/14/24 21:40 98 Room Air 09/14/24 21:34 Room Air 09/14/24 20:41 127/70 96 Room Air 09/14/24 18:25 141/95 H 99 Room Air 09/14/24 16:53 97 Room Air 09/14/24 16:53 Room Air 09/14/24 16:50 09/14/24 16:29 97 Room Air Pain Intensity Right 2nd Digit Toe: Pain Intensity: 5 Transfer of Care Handoff Completed per policy Notes Mental Status: alert / awake / arousable and participated in evaluation Patient Amnestic to Procedure: Yes Nausea / Vomiting: adequately controlled Pain: adequately controlled Airway Patency, RR, SpO2: stable & adequate BP & HR: stable & adequate Hydration State: stable & adequate Anesthetic Complications: no major complications apparent and Pt Satisfied with anesthetic care
[2024-09-15] MEDS: ASPIRIN 81 MG ECTAB PO SCH (11:02)
[2024-09-15] MEDS: ATORVASTATIN 40 MG TAB PO SCH (11:03)
[2024-09-15] MEDS: FINASTERIDE 5 MG TAB PO SCH (11:03)
[2024-09-15] MEDS: VANCOMYCIN HCL 1,000 MG in SODIUM CHLORIDE 0.9% 250 ML IV SCH (13:57)
--- NOTE | 2024-09-15 14:06 | Anesthesiology Progress Note ---
Date of Service September 15, 2024 Anesthesia Post Procedure Vital Signs Vital Signs: Temp Pulse Pulse Pulse Resp BP BP 09/15/24 13:55 98.1 F 71 16 104/65 09/15/24 12:54 97.7 F 80 16 102/61 09/15/24 12:06 97.9 F 75 16 114/66 09/15/24 11:34 97.7 F 76 16 112/66 09/15/24 11:00 98.1 F 77 16 114/71 09/15/24 10:40 97.9 F 88 16 123/58 L 09/15/24 10:30 78 22 111/59 L 09/15/24 10:20 98.1 F 94 H 14 103/63 09/15/24 09:06 97.9 F 70 20 126/65 09/15/24 07:45 97.9 F 62 18 138/75 09/14/24 21:40 97.7 F 84 16 156/84 H 09/14/24 21:34 09/14/24 20:41 62 18 09/14/24 18:25 92 H 16 09/14/24 16:53 72 16 09/14/24 16:53 09/14/24 16:50 98 H 09/14/24 16:29 98.1 F 91 H 19 136/76 BP Pulse Ox O2 Del Method 09/15/24 13:55 95 Room Air 09/15/24 12:54 96 Room Air 09/15/24 12:06 97 Room Air 09/15/24 11:34 96 Room Air 09/15/24 11:00 97 Room Air 09/15/24 10:40 95 Room Air 09/15/24 10:30 93 Room Air 09/15/24 10:20 98 Room Air 09/15/24 09:06 99 Room Air 09/15/24 07:45 99 Room Air 09/14/24 21:40 98 Room Air 09/14/24 21:34 Room Air 09/14/24 20:41 127/70 96 Room Air 09/14/24 18:25 141/95 H 99 Room Air 09/14/24 16:53 97 Room Air 09/14/24 16:53 Room Air 09/14/24 16:50 09/14/24 16:29 97 Room Air Pain Intensity Right 2nd Digit Toe: Pain Intensity: 5 Transfer of Care Handoff Completed per policy Notes Mental Status: alert / awake / arousable and participated in evaluation Patient Amnestic to Procedure: Yes Nausea / Vomiting: adequately controlled Pain: adequately controlled Airway Patency, RR, SpO2: stable & adequate BP & HR: stable & adequate Hydration State: stable & adequate Anesthetic Complications: no major complications apparent and Pt Satisfied with anesthetic care
--- NOTE | 2024-09-15 14:28 | Electrocardiogram Report ---
Test Reason : Blood Pressure : */* mmHG Vent. Rate : 87 BPM Atrial Rate : 87 BPM P-R Int : 160 ms QRS Dur : 74 ms QT Int : 380 ms P-R-T Axes : 10 -34 48 degrees QTcB Int : 457 ms Sinus rhythm with Premature atrial complexes Left axis deviation Low voltage QRS Cannot rule out Anterior infarct (cited on or before 07-Dec-2023) Abnormal ECG When compared with ECG of 07-Dec-2023 13:09, Premature atrial complexes are now Present Vent. rate has increased by [address] no longer elevated in Anterior leads Nonspecific T wave abnormality no longer evident in Inferior leads Confirmed by Dallas Anderson ([id number]) on 09/15/2024 2:28:19 PM Referred By: Confirmed By: Dallas Anderson
[2024-09-15] MEDS: ACETAMINOPHEN 325 MG TAB PO PRN (15:50)
--- NOTE | 2024-09-15 18:01 | Hospitalist Progress Note ---
"Date of Service September 15, 2024 Assessment & Plan (1) Osteomyelitis: (2) Gout of multiple sites: (3) Current chronic use of systemic steroids: (4) CAD (coronary artery disease): (5) Mixed hyperlipidemia: Plan This patient is an 84-year-old male who presented for a worsening right second toe infection. He was sent in by his PCP on 09/14 after having a right foot x- ray done outpatient revealing septic arthritis versus osteomyelitis - Reveals osteolysis/destructive changes centered about the second PIP joint favoring infectious etiology (septic arthritis/osteomyelitis) over gouty arthropathy. Clinically, patient reports no pain in his toe at rest. No reported fevers at home. No prosthetic valves or hardware in the right leg. #Osteomyelitis CRP 1.87 and ESR 42. Will trend No leukocytosis; afebrile; not septic Wound culture growing staph, sensitivities pending Blood culture no growth at 24 hours Podiatry consult appreciated - s/p amputation with good margins suspect can transition to PO abx at discharge Continue Ceftriaxone 2000 mg IV q24h and Vancomycin 1250 mg IV q24h PT ordered #Gouty arthropathy | Chronic prednisone use Patient reports he normally took allopurinol 300 mg x 2 tablets daily, but cut back to 1 tablet daily a couple weeks ago Plan to restart patient on allopurinol 300 mg x 2 tablets daily (total 600 mg daily) Continue prednisone 2.5 mg daily #CAD | H/o HI s/p DESIREE in December 2023 Continue Brilinta BID Continue aspirin #HLD Continue atorvastatin #Microscopic hematuria-greater than 20 RBCs on UA. He follows with urology and had a cystoscopy in June 2023 which showed significant detrussor inflammation and irritation. He has a history of prostate cancer as well - Should have repeat UA as an outpatient and follow-up with urology if persistent Disposition: continued inpatient stay VTE PPx: resume heparin Case discussed with Dr. Thurston Admission and Anticipated Discharge Date Admission Date: September 14, 2024 Supervising Physician Co-Signing Physician Notes PA Supervision Note: I did not personally see or examine the patient today, but I verified all bray points of INGA Milan's assessment and plan with the following exceptions/additions: None Subjective Patient seen lying in bed post operatively. denies systemic illness symptoms prior to surgery but was having pain in his toe at the time of my exam, pain is well controlled Has a good appetite Review of Systems Review of Systems: All systems reviewed & are unremarkable except as noted in Subjective Physical Exam Physical Exam: General: NAD, VS as above Resp: normal respiratory effort, lungs clear to auscultation CV: RRR, no murmur, Abd: normal bowel sounds, non tender, no hepatosplenomegaly Extremities: Moves all extremities, right toe dressing c/d/i Neuro: A&O x3, Results & Data Results & Data Vital Signs (Past 12 Hours) Vital Signs Temp Pulse Pulse Resp BP Pulse Ox O2 Del Method 09/15/24 13:55 98.1 F 71 16 104/65 95 Room Air 09/15/24 12:54 97.7 F 80 16 102/61 96 Room Air 09/15/24 12:06 97.9 F 75 16 114/66 97 Room Air 09/15/24 11:34 97.7 F 76 16 112/66 96 Room Air 09/15/24 11:00 98.1 F 77 16 114/71 97 Room Air 09/15/24 10:40 97.9 F 88 16 123/58 L 95 Room Air 09/15/24 10:30 78 22 111/59 L 93 Room Air 09/15/24 10:20 98.1 F 94 H 14 103/63 98 Room Air 09/15/24 09:06 97.9 F 70 20 126/65 99 Room Air 09/15/24 07:45 97.9 F 62 18 138/75 99 Room Air Laboratory Results cbc and chemistry reviewed Diagnostic Findings foot xray reviewed PG Care Time/CCT Total # of Minutes Spent Total Time Spent with Patient: Total time spent is greater than 50% in coordination of care (as documented) at patient's floor/unit and/or counseling patient: Coding Level of Care Code 72373 SUB INP/OBS CARE 3/50MIN Diagnoses Other acute osteomyelitis of right foot M86.171 Laterality: right Osteomyelitis location: foot Osteomyelitis type: other acute Gout of multiple sites M10.9 Chronicity: chronic Current chronic use of systemic steroids Z79.52 Coronary artery disease involving [place] coronary artery of [place] heart without angina pectoris I25.10 Associated angina: without angina Coronary Disease-Associated Artery/Lesion type: [place] artery [place] vs. transplanted heart: [place] heart Mixed hyperlipidemia E78.2 (1) Osteomyelitis Laterality: right Osteomyelitis location: foot Osteomyelitis type: other acute Qualified Code(s): M86.171 - Other acute osteomyelitis, right ankle and foot (2) Gout of multiple sites Chronicity: chronic (4) CAD (coronary artery disease) Associated angina: without angina Coronary Disease-Associated Artery/Lesion type: [place] artery [place] vs. transplanted heart: [place] heart Qualified Code(s): I25.10 - Atherosclerotic heart disease of [place] coronary artery without angina pectoris"
[2024-09-15 23:00] VITALS: TEMP 97.5
[2024-09-16 06:19] LABS: Hematocrit (blood only) 32.6 % (42.0-52.0); Hemoglobin 10.5 g/dl (14.0-18.0); Mean Corpuscular Hemoglobin 32.4 pg (25.0-34.0); Mean Corpuscular Volume 100.6 fL (80.0-100.0); Platelet Count 199 K/uL (130-400); RDW Standard Deviation 51.0 fL (36.4-46.3); Red Blood Count 3.24 M/uL (4.70-6.10); White Blood Count 8.46 K/ul (4.8-10.8)
[2024-09-16 06:33] LABS: Anion Gap 7.0 (3-11); Blood Urea Nitrogen 28.0 mg/dl (6-23); Calcium 8.6 mg/dl (8.6-10.3); Carbon Dioxide 25.0 mmol/L (21-32); Chloride 105.0 mmol/L (98-107); Creatinine Clr Calc Pharmacy 37.6 ml/min; Glucose 92.0 mg/dl (70-99(Fasting)); Potassium 4.6 mmol/L (3.5-5.1); Sodium 137.0 mmol/L (136-145)
[2024-09-16 07:54] VITALS: BP 123/78; PULSE 67; O2SAT 98
--- NOTE | 2024-09-16 10:38 | Pharmacy Report ---
Pharmacy PK ABX Note - Date of Service September 16, 2024 - Assessment and Plan Assessment 09/16: Reviewed vancomycin level, predicting therapeutic AUC/YURI, continue current regimen. Right second toe amputation yesterday, OR cultures pending, blood cultures NG x24 hours. Patient afebrile. 09/15: 84 year old M receiving ceftriaxone/vancomycin for treatment of osteomyelitis of right toe. Pertinent microbiologic data includes: blood cultures pending. Plan for toe amputation today. Day # 1 of antimicrobial therapy. Plan Vancomycin * Loading dose: 1750 mg IV x 1 * Maintenance dose: 1000 mg IV every 24 hours * Regimen is predicted to achieve target AUC/YURI of 400-600 mg/L.hr * Random level to be ordered if continued beyond 48 hours or based on clinical status. Pharmacy will continue to follow and will adjust dose/frequency as necessary. Thank you. Pharmacy has transitioned to AUC monitoring for vancomycin. AUC/YURI is the preferred PK/PD target and is associated with decreased risk of nephrotoxicity compared to traditional trough targets.
--- NOTE | 2024-09-16 13:40 | Podiatry Progress Note ---
Date of Service September 16, 2024 Assessment & Plan (1) Acute osteomyelitis of toe of right foot: (2) Osteomyelitis: (3) Gout of multiple sites: (4) Status post amputation of lesser toe of right foot: Plan Ulceration the lateral aspect of the right second toe, osteomyelitis right second toe, cellulitis right second toe, gout right second toe Plan: Postop day 1 status post right second digit amputation Weight bearing status: Okay to continue foot flat weightbearing in postop shoe right foot with crutches or walker to assist. Patient requesting crutches to help minimize pressure to the foot and navigate through narrow places in his home. Continue to elevate right lower extremity on 2 pillows while at rest. Wound care: Surgical dressing removed with scant sanguinous drainage from the dorsal incision. Dressing change should be every other day cleansing wound with normal sterile saline dressing with a dry gauze dressing and an Moi bandage to the foot and ankle. VTE Prophylaxis: okay from podiatric standpoint Antibiotics: broad-spectrum per medicine. Okay for discharge on p.o. Augmentin should be continued for a total of 2 weeks antibiotic therapy from the time of admission. Will continue to monitor intraoperative cultures as they come in and adjust antibiotics as necessary. Pain Control: Multimodal Discharge Plan: Patient okay for discharge from podiatry standpoint following clearance from PT OT for use of crutches and/or a walker. Follow-up: Patient will follow-up with myself in the podiatry clinic in 2 weeks for wound check and/or suture removal. Admission and Anticipated Discharge Date Admission Date: September 14, 2024 Subjective Patient seen resting comfortably in bedside chair with foot elevated on a chair. Reports mild pain at the right second toe amputation site not increased from preoperative. Denies nausea vomiting fever chills. Patient is requesting crutches over a walker as he is concerned for narrow places in the home where he would not be able to use a walker and he feels confident that he would be able to navigate with crutches and reduce pressure to the operative foot. He understands that he is not able to drive until sutures are removed and the postoperative shoe is discontinued. He voices understanding of the importance of elevating the foot above the level of heart at all times when possible to minimize edema to the right foot and stress at the incision line. Review of Systems Review of Systems: Denies nausea, vomiting, fever, chills. Reports mild pain in the right second toe at baseline. Physical Exam 2 Physical Exam: Const: Appears well developed and well nourished. No signs of acute distress present. CV: Extremities: No cyanosis Capillary refill time is less than 2 seconds all digits of the bilateral foot. Posterior tibial and dorsalis pedis pulses are palpable bilateral. Neuro: Sensation intact to light touch in all areas of the foot and ankle. Psych: Mood/Affect: Mood is normal. Affect is normal. Cognition: Orientation is intact to person, place and time. Focused lower extremity musculoskeletal exam: Leg: No pain with compression of the calf muscle. Ankles: Normal to inspection and palpation. No swelling bilaterally. No tenderness bilaterally.Motor strength is intact. Range of motion pain-free and unlimited. Feet: Right foot: Postop day 1 status post right second digit amputation with primary closure. There is decreased but persistent erythema at the amputation site. Increased pitting edema to the right lower extremity diffusely to the foot and ankle. Wound edges are well-approximated with all sutures intact. Possible area of early skin breakdown along the lateral aspect of the incision in the interspace with slight violaceous discoloration to the wound edge and m ild maceration. Will continue to monitor this area closely and provide wound care as necessary. Results & Data Results & Data Vital Signs (Past 12 Hours) Vital Signs Temp Pulse Pulse Resp BP BP Pulse Ox 09/16/24 07:48 36.4 C L 67 16 123/78 98 09/16/24 02:57 36.4 C L 74 16 104/62 96 O2 Del Method 09/16/24 07:48 Room Air 09/16/24 02:57 Room Air Coding Level of Care Code 34066 SUB INP/OBS CARE 2/35MIN Diagnoses Acute osteomyelitis of toe of right foot M86.171 Other acute osteomyelitis of right foot M86.171 Osteomyelitis type: other acute Osteomyelitis location: foot Laterality: right Gout of multiple sites M10.9 Chronicity: chronic Status post amputation of lesser toe of right foot Z89.421 (2) Osteomyelitis Osteomyelitis type: other acute Osteomyelitis location: foot Laterality: right Qualified Code(s): M86.171 - Other acute osteomyelitis, right ankle and foot (3) Gout of multiple sites Chronicity: chronic
--- NOTE | 2024-09-16 14:42 | Discharge Summary ---
"Discharge Summary Date of Service September 16, 2024 Principal Dx & Hospital Course #1 = Principal Diagnosis (1) Osteomyelitis: (2) Gout of multiple sites: (3) Current chronic use of systemic steroids: (4) CAD (coronary artery disease): Plan #Osteomyelitis This patient is an 84-year-old male who presented for a worsening right second toe infection. He was sent in by his PCP on 09/14 after having a right foot x- ray done outpatient revealing septic arthritis versus osteomyelitis. Repeat xray concerning for osteomyelitis. Podiatry consulted and s/p 2nd toe amputation with Dr. Thurston on 09/15 with good margins. Wound culture growing MSSA, surgical pathology pending. Discharge home with course of Augmentin for 14 day course. PT rec home with HH - pt declined HH and doing well with crutches. Follow up with podiatry. #Gouty arthropathy | Chronic prednisone use Continue Gout and prednisone #CAD | H/o ME s/p DESIREE in December 2023 Continue Brilinta BID and Continue aspirin #HLD - Continue atorvastatin #Microscopic hematuria-greater than 20 RBCs on UA. He follows with urology and had a cystoscopy in June 2023 which showed significant detrussor inflammation and irritation. He has a history of prostate cancer as well - Should have repeat UA as an outpatient and follow-up with urology if persistent #Chronic anemia/CKD stage III-likely of anemia chronic renal disease but should follow-up with PCP Disposition: discharge to home today Notes For Next Care Provider see above re: microscopic hematuria Medication Changes From Visit course of augmentin stopped clindamycin Admission HPI Per Admitting Provider Mr. Pearce is an 84-year-old male with PMH of mixed hyperlipidemia, gout, prostate cancer, and CAD. He presented on 09/14 at the behest of his PCP for a right second toe injury. Previously they thought he was being treated for gout, however he was called by his PCP today after obtaining an outpatient x-ray of the right foot showing septic arthritis, osteomyelitis. Patient reports no injuries to his right second toe. He first noticed that his toe was becoming red and swollen on September 05. He has been taking pictures of the toe, and reports it has been gradually worsening. He does not experience any pain in the toe at rest, but does have some pain when he bears weight on it and walks around. The pain remains in his toe and does not shoot up his leg. No history of MRSA infections. However, he does report purulent drainage recently started draining from his toe and ending up on his socks. 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 He also took his regular morning medicine today. Only recent change in medication is that he stopped metoprolol. Patient does have a history of gout, and is normally on a large dose of allopurinol (300 mg tablets x 2 daily; total 600 mg). He recently cut back his dosage to 1 tablet 2 weeks ago, and is unsure if this is what caused the gout to flare. He does follow with rheumatology, and is currently on a small dose of prednisone daily; has been on chronic prednisone for the past 2 years. No history of prosthetics in the right leg. No history of prosthetic valves. Patient is currently on aspirin and Brilinta for history of an ME in November s/p heart stents. Patient denies smoking, tobacco use, recent alcohol use. No history of diabetes. Vital stable at time of mission. ED course: Vancomycin 1750 mg IV Cefepime 2000 mg IV ROS: Patient endorses intermittent toe pain when bearing weight, and second right toe redness/swelling/purulent drainage. Patient denies fever, chills, night-sweats, dizziness/lightheadedness, chest pain, SOB, abdominal pain, N/V/D, burning with urination, or blood in the urine/stool. Discharge Exam General: NAD, VS as above Resp: normal respiratory effort, lungs clear to auscultation CV: RRR, no murmur, Abd: normal bowel sounds, non tender, no hepatosplenomegaly Extremities: Moves all extremities, right toe dressing c/d/i. able to wiggle toes bilaterally, toes are warm Neuro: A&O x3, Discharge Plan Discharge Items Patient Disposition: Home - Self-Care Reason For Visit: RIGHT 2ND TOE OSTEOMYELITIS Discharge Diagnosis: right 2nd toe osteomylitis Condition on Discharge: Fair Activity: As commented below Non-emergency contact: Primary Care Provider and Surgeon Call non-emergency contact if: you have any medication questions, your symptoms worsen and your temperature is above 101 Follow-up/Referrals: Mk Thurston DPM [Surgeon] - (follow up as directed ) Kaylen Costello CRNP [Primary Care Provider] - 09/19/24 9:00 am Diet: Regular Addtl Attending Provider Instructions: Mr. Pearce, You were hospitalized after having infection in your toe resulting in ampution with Dr. Thurston on 09/15. You will be continued on oral antibiotics - Augmentin for 12 more days. First dose AM 09/17 - take this with food. You can take tylenol for pain. I have sent in a few tabs of oxycodone if needed for breakthrough pain. Please use your crutches. Follow up with Dr. Thurston as instructed, information from him below. Podiatry instructions: Weight bearing status: Okay to continue foot flat weightbearing in postop shoe right foot with crutches Continue to elevate right lower extremity on 2 pillows while at rest. Wound care: Surgical dressing removed with scant sanguinous drainage from the dorsal incision. Dressing change should be every other day cleansing wound with normal sterile saline dressing with a dry gauze dressing and an Moi bandage to the foot and ankle. No driving until cleared by Dr. Thurston. CONTACT YOUR PRIMARY CARE PROVIDER if you experience any of the following: Shortness of breath or difficulty breathing Fevers or chills Feeling tired with normal activity or experiencing dizziness or fainting Difficulty following your treatment plan, or difficulty taking medications CALL 911 OR GO TO THE EMERGENCY DEPARTMENT if you experience any of the following: Severe abdominal pain or nausea/vomiting Severe chest pain, or chest pain that radiates (moves) to your jaw or arm Sudden, severe shortness of breath or difficulty breathing Thank you for allowing us to participate in your care. Pending Studies at Discharge: Yes (OR cultures ) Stand-Alone Forms: [facility], Smoking Cessation Medications and DC Order Prescriptions: New oxycodone 5 mg Tablet 5 mg PO Q6H PRN (Reason: pain) Qty: 5 0RF amoxicillin-pot clavulanate 875-125 mg tablet 1 tab PO BID 12 Days Qty: 24 0RF Continued prednisone 2.5 mg tablet 2.5 mg PO DAILY Qty: 90 1RF atorvastatin 80 mg tablet 80 mg PO QAM Qty: 90 2RF Brilinta 90 mg tablet 90 mg PO BID Qty: 180 3RF tamsulosin 0.4 mg capsule 0.4 mg PO DAILY PRN (Reason: Chest Pain) allopurinol 300 mg tablet 300 mg PO DAILY Qty: 180 3RF nitroglycerin 0.4 mg tablet, sublingual 0.4 mg sublingual Q5M PRN (Reason: chest pain) Qty: 14 0RF Rx Instructions: do not exceed 3 doses per episode finasteride 5 mg Tablet 5 mg PO DAILY aspirin 81 mg Tablet,Delayed Release (Dr/Ec) 81 mg PO QAM Qty: 90 0RF Discontinued clindamycin HCl 300 mg capsule 300 mg PO Q6H 5 Days Qty: 20 0RF Discharge Orders: Discharge Order (Routine); Ordered 09/16/24 Ordered By: Emely Milan Admission Data Admit Date/Time: 09/14/24 19:40 Attending Provider: Emma Del Castillo Admit Provider: Nicholas Webber Primary Care Provider: Kaylen Costello Other Providers: Mk Thurston Other Interventions: Discharge Summary Assessment (RN) Last Done: 09/16/24 15:06 Hospital Stay Data Consultations 09/14/24 19:37 Consult Podiatry Stat Procedures Performed Operation Date: 09/15/24 07:00 Actual Procedures p Right Second Toe Amputation(Right) - Mk Thurston DPM Diagnostic Imagining Performed Foot X-Ray 09/14/24 19:38 Exam(s): XR RIGHT FOOT, 3+ views EXAM: XR Right Foot Complete, 3 or More Views CLINICAL HISTORY: Reason for exam: R second toe osteo. TECHNIQUE: Frontal, lateral and oblique views of the right foot. COMPARISON: None FINDINGS: Bones/joints: No displaced fracture or dislocation identified. Moderate degenerative change of the right 1st MTP joint. Mild degenerative change of the right 1st interphalangeal joint. Degenerative change of the right 2nd PIP joint with periarticular lucency, raising concern for osteomyelitis. Plantar calcaneal spur. Degenerative changes of the midfoot. Soft tissues: Soft tissue swelling, most severely involving the right 2nd digit. No radiopaque foreign body identified. IMPRESSION: 1. Lucency along the right 2nd PIP joint, raising concern for osteomyelitis. 2. Soft tissue swelling, most severely involving the right 2nd digit. Electronically signed by: Haily Yu M.D. 09/14/24 21:26 PM Pending Results Patient Have Any Pending Studies at Discharge: Yes (OR cultures ) Discharge Instructions Given to Patient (Per Discharging Provider) Mr. Pearce, Yosvany were hospitalized after having infection in your toe resulting in ampution with Dr. Thurston on 09/15. You will be continued on oral antibiotics - Augmentin for 12 more days. First dose AM 09/17 - take this with food. You can take tylenol for pain. I have sent in a few tabs of oxycodone if needed for breakthrough pain. Please use your crutches. Follow up with Dr. Thurston as instructed, information from him below. Podiatry instructions: Weight bearing status: Okay to continue foot flat weightbearing in postop shoe right foot with crutches Continue to elevate right lower extremity on 2 pillows while at rest. Wound care: Surgical dressing removed with scant sanguinous drainage from the dorsal incision. Dressing change should be every other day cleansing wound with normal sterile saline dressing with a dry gauze dressing and an Moi bandage to the foot and ankle. No driving until cleared by Dr. Thurston. CONTACT YOUR PRIMARY CARE PROVIDER if you experience any of the following: Shortness of breath or difficulty breathing Fevers or chills Feeling tired with normal activity or experiencing dizziness or fainting Difficulty following your treatment plan, or difficulty taking medications CALL 911 OR GO TO THE EMERGENCY DEPARTMENT if you experience any of the following: Severe abdominal pain or nausea/vomiting Severe chest pain, or chest pain that radiates (moves) to your jaw or arm Sudden, severe shortness of breath or difficulty breathing Thank you for allowing us to participate in your care. Supervising Physician Co-Signing Physician Notes PA Supervision Note: I did not personally see or examine the patient today, but I verified all bray points of INGA Milan's assessment and plan with the following exceptions/additions: None Total Time Total Time Spent Total Time Spent (In Minutes): Time spent day of discharge 36 minutes including direct patient care, medication reconciliation, documentation, review of labs and images, and coordination of c are. Coding Level of Care Code 29711 INP/OBS DISCH >30 MIN Diagnoses Other acute osteomyelitis of right foot M86.171 Laterality: right Osteomyelitis location: foot Osteomyelitis type: other acute Gout of multiple sites M10.9 Chronicity: chronic Current chronic use of systemic steroids Z79.52 Coronary artery disease involving [place] coronary artery of [place] heart without angina pectoris I25.10 Associated angina: without angina Coronary Disease-Associated Artery/Lesion type: [place] artery [place] vs. transplanted heart: [place] heart"
== END 2024-09-16 15:42 | disposition home or self-care (01) | DRG 504 ==
LOC: ED 16:25 → SUATTDRO 19:40 → 3N 19:40